=== PATIENT | male | born 1955 | race Caucasian/White ===

== ENCOUNTER 2018-01-09 22:16 | Inpatient (IN) | END 2018-01-15 10:30 | disposition home or self-care (01) | DRG 919 ==

== ENCOUNTER 2018-05-08 09:01 | Inpatient (IN) | payer OTHER ==
[~2018-05-08] VITALS: Ht 167.6 cm; Wt 92.0 kg
[2018-05-08] VITALS (12 sets, daily range): BP systolic 101–141; BP diastolic 67–84; PULSE 53–60; RESP 16–18; Ht 167.6 cm; Wt 92.0 kg
[~2018-05-08 09:01] MED LIST: ALLO100T PO; ASPI-817 PO; ATOR-2 PO; CALC667C PO; CLOP75TA19 PO; FURO40TA4 PO; Insulin Glargine SC; LOSA100T15 PO; METO200T49 PO; NOVO3I SC
[2018-05-08] MEDS ORDERED: ALBUTEROL 0.083% (NEB) 2.5 MG/3 ML AMP HHN STA (09:14)
[2018-05-08] MEDS ORDERED: IPRATROPIUM (NEB) 0.5 MG/2.5 ML AMP HHN ONE (09:30)
[2018-05-08] MEDS ORDERED: ATOR-2 PO (10:05)
[2018-05-08] MEDS ORDERED: AMIO200T4 PO (10:05)
[2018-05-08] MEDS ORDERED: CLOP75TA27 PO (10:06)
[2018-05-08] MEDS ORDERED: NPH,100V SQ (10:12)
[2018-05-08] MEDS ORDERED: INSU100V3 IJ (10:12)
[2018-05-08] MEDS ORDERED: METO200T49 PO (10:13)
[2018-05-08] MEDS ORDERED: MAGN400T28 PO (10:13)
[2018-05-08] MEDS ORDERED: ACETAMINOPHEN 325 MG TAB PO PRN ×2 (11:30→13:30)
[2018-05-08] MEDS ORDERED: ONDANSETRON 4 MG INJ IV PRN ×2 (11:30→13:30)
[2018-05-08] MEDS ORDERED: SODIUM CHLORIDE 0.9% 1L BAG IV PRN (11:30)
[2018-05-08] MEDS ORDERED: ALBUMIN HUMAN 25% 100 ML IV PRN (11:30)
--- NOTE | 2018-05-08 11:35 | CONS ---
Date/Time of Note Date/Time of Note DATE: 05/08/18 TIME: 11:34 Assessment/Plan Assessment/Plan Additional Assessment/Plan 1. Acute fluid overload with significant LE edema despite being on 4 times a week HD regimen 2. Concerned about PD catheter infection due to constant pain and cough 3. ESRD on HD , and Tuesday Schedule at [facility] HD center 4. H/o HTN 5. H/o DM II 6. H/o HL Plan: seen in ED, pt will be getting admitted to Tele floor Plan for HD urgently due to fluid overload, will plan for another HD tomorrow ,IV ceftriaxone for PD catheter infection , will change to PO keflex upon discharge Due to concern about PD catheter pain and infection, will plan to remove his PD catheter pt is currently on HD regimen through his R chest permacath Thanks for consultation I will continue to follow up Consultation Date/Type/Reason Admit Date/Time 05/08/2018 Date of Consultation: May 08, 2018 Type of Consultation: NEPHROLOGY Reason for Consultation ESRD on HD with acute fluid overlaod, abdominal pain concerned about infected PD catheter Requesting Provider: DULCE MARIA TRUONG MD Hx of Present Illness 63 M with PMHx of HTN, DM II, ESRD on HD Tuesday, and Tuesday, pt was previosly on PD but continues ot have fluid overlod and SOB- he was switched to Hemodialysis for better Fluid removal and BP control. Currenlty he gets HD through Right chest Permacath at [facility] HD center pt previosly has high fluid from PD infected with GBS- he has been constantly c/o Abdominal pain with distended abdomen in HD unit also has been having constant cough he has been on 4 times a week HD regiment still he has significant LE Edema 3+, and Dyspnea on exertion he is getting admitted for fluid overload and Possible need removal of his PD catheter Constitutional: no complaints Eyes: no complaints ENT: no complaints Respiratory: pain, cough, pleuritic pain, shortness of breath Cardiovascular: no complaints Gastrointestinal: pain (abdominal pain at PD catheter site ) Genitourinary: flank pain Musculoskeletal: neck pain Skin: no complaints Neurologic: no complaints Endocrine: no complaints Lymphatic: no complaints Psychological: no complaints Immunologic: no complaints Past Surgical History Past Surgical Hx: other Social History Smoking Status: Former smoker Exam/Review of Systems Vital Signs Vitals Vital Signs Date Temp Pulse Resp B/P (MAP) Pulse Ox O2 O2 Flow FiO2 Time Delivery Rate 05/08/18 59 21 118/74 99 Room Air 11:31 (89) 05/08/18 98.0 11:00 05/08/18 21 09:24 Exam Constitutional: alert Psych: no complaints Head: normocephalic Eyes: nl conjunctiva ENMT: nl external ears & nose Neck: supple, non-tender Respiratory: congested cough, crackles/rales, diminished breath sounds Cardiovascular: regular rate and rhythm, nl pulses Gastrointestinal: soft, distended, tender (at PD catheter site on deep pal pation ) Musculoskeletal: muscle weakness, swelling (2-3+ pitting edema ) Extremities: normal pulses 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, nl mental status, nl speech, nl strength Skin: nl turgor Lymph: nl lymph nodes Medications Medications Current Medications Ondansetron HCl (Zofran Inj) 4 mg BRIDGE ORDER PRN IV NAUSEA AND/OR VOMITING; Start 05/08/18 at 11:30; Stop 05/09/18 at 11:29 Acetaminophen (Tylenol Tab) 650 mg ER BRIDGE PRN PO MILD PAIN(1-3)OR ELEVATED TEMP; Start 05/08/18 at 11:30; Stop 05/09/18 at 11:29 Heparin Sodium (Porcine) (Heparin (1000 Units/ml)) 4,000 unit AFTER DIALYSIS CATHETER ; Start 05/08/18 at 11:30; Status UNV Albumin Human 100 ml @ 100 mls/hr WITH DIALYSIS PRN IV SBP less than 90 mm Hg ; Start 05/08/18 at 11:30; Status UNV Sodium Chloride (NS) -To prime the dialy... DIRECTED FOR HD PRN IV SBP less than 90 mm hg ; Start 05/08/18 at 11:30; Status UNV Results Result Diagram: 05/08/1894805/08/18 0949 Results 24 hrs Laboratory Tests Test 05/08/18 09:49 White Blood Count 8.3 Red Blood Count 3.57 #L Hemoglobin 10.2 L Hematocrit 34.4 #L Mean Corpuscular Volume 96.4 Mean Corpuscular Hemoglobin 28.6 L Mean Corpuscular Hemoglobin Concent 29.7 L Red Cell Distribution Width 16.2 #H Platelet Count 195 Mean Platelet Volume 9.4 Immature Granulocytes % 0.200 Neutrophils % 58.0 Lymphocytes % 15.8 Monocytes % 10.4 Eosinophils % 14.5 H Basophils % 1.1 Nucleated Red Blood Cells % 0.0 Immature Granulocytes # 0.020 Neutrophils # 4.8 Lymphocytes # 1.3 Monocytes # 0.9 Eosinophils # 1.2 H Basophils # 0.1 Nucleated Red Blood Cells # 0.0 Sodium Level 140 Potassium Level 5.1 Chloride Level 102 Carbon Dioxide Level 24 Anion Gap 14 H Blood Urea Nitrogen 67 H Creatinine 9.23 H Est Glomerular Filtrat Rate mL/min 6 L Glucose Level 165 Calcium Level 8.3 L Troponin I < 0.012 FADI IRWIN MD May 08, 2018 11:35
--- NOTE | 2018-05-08 12:18 | ERD ---
ER Documentation Chief Complaint Chief Complaint SOB TODAY DUE FOR F DIALISYS TOMORROW HPI Patient is a 63-year-old male with coronary disease, hypertension, and diabetes who presents with shortness of breath. The patient had a hard time breathing and was "panting this morning". He had cough but no fever. He did have his dialysis on Tuesday and usually gets Tuesday, , and Tuesday dialysis. Upon review of old medical records the patient one previous visit with admission on December 2017. The patient's director environmental is Dr. Mark Crystal. ROS All systems reviewed and are negative except as per history of present illness. Medications Home Meds Active Scripts Losartan Potassium* (Losartan Potassium*) 100 Mg Tablet, 100 MG PO DAILY, #30 TAB Prov:BRADLEY OVALLE 01/14/18 Reported Medications Metoprolol Succinate* (Toprol XL*) 200 Mg Tab.sr.24h, 200 MG PO DAILY, #30 TAB 05/08/18 Magnesium Oxide* (Magnesium Oxide*) 400 Mg Tablet, 400 MG PO BID, TAB 05/08/18 Insulin Regular, Human (Humulin R) 100 Unit/1 Ml Vial, 15 UNIT IJ QPM, VIAL 05/08/18 Insulin NPH Human Isophane (Humulin N) 100 Unit/1 Ml Vial, 20 UNIT SQ QAM, VIAL 05/08/18 Clopidogrel Bisulfate (Clopidogrel) 75 Mg Tablet, 75 MG PO DAILY, #30 TAB 05/08/18 Atorvastatin* (Atorvastatin*) 80 Mg Tablet, 80 MG PO QHS, #30 TAB 05/08/18 Amiodarone Hcl* (Amiodarone Hcl*) 200 Mg Tablet, 200 MG PO DAILY, #30 TAB 05/08/18 Allopurinol* (Allopurinol*) 100 Mg Tablet, 100 MG PO BID, TAB 01/09/18 Calcium Acetate* (Calcium Acetate*) 667 Mg Capsule, 667 MG PO WITH MEALS, #90 CAP 01/09/18 Discontinued Scripts Insulin Aspart* (Novolog Insulin Pen*) 100 Unit/Ml Soln, 8 UNIT SC WITH MEALS for 30 Days Prov:BRADLEY OVALLE 01/14/18 [Insulin Glargine] 100 UNITS/ML SOLN No Conflict Check, 35 UNITS SC QHS for 30 Days Prov:BRADLEY OVALLE 01/14/18 Clopidogrel Bisulfate* (Clopidogrel Bisulfate*) 75 Mg Tablet, 75 MG PO DAILY, #30 TAB Prov:REGIDORBRADLEY 01/14/18 Aspirin* (Aspirin* EC) 81 Mg Tablet.dr, 81 MG PO DAILY, #30 TAB Prov:REGIDORBRADLEY 01/14/18 Atorvastatin* (Atorvastatin*) 80 Mg Tablet, 80 MG PO QHS, #30 TAB Prov:REGIDORJUDAHBRADLEY 01/14/18 Metoprolol Succinate* (Toprol XL*) 200 Mg Tab.sr.24h, 200 MG PO DAILY, #30 TAB Prov:REGIDOR,BRADLEY 01/14/18 Furosemide* (Furosemide*) 40 Mg Tablet, 40 MG PO BID, #60 TAB Prov:[facility] 01/14/18 Allergies Allergies: Coded Allergies: No Known Allergy (Unverified , 05/08/18) PMhx/Soc History of Surgery: Yes (cardiac stents x 6 ) Hx Neurological Disorder: No Hx Respiratory Disorders: No Hx Cardiac Disorders: Yes (HTN) Hx Psychiatric Problems: No Hx Miscellaneous Medical Probl: No Hx Alcohol Use: No Hx Substance Use: No Hx Tobacco Use: No Smoking Status: Former smoker FmHx Family History: diabetes Physical Exam Vitals Vital Signs Date Temp Pulse Resp B/P (MAP) Pulse Ox O2 O2 Flow FiO2 Time Delivery Rate 05/08/18 98.0 59 18 120/70 97 Room Air 11:00 (87) 05/08/18 59 21 115/70 100 Room Air 10:30 (85) 05/08/18 62 18 141/112 100 Room Air 10:05 (122) 05/08/18 88 24 100 21 09:24 05/08/18 97.2 61 18 122/63 99 09:04 (82) Physical Exam Const: Moderate distress secondary to shortness of breath Head: Atraumatic Eyes: Normal Conjunctiva ENT: Normal External Ears, Nose and Mouth. Neck: Full range of motion. No meningismus. Resp: Tachypnea with diffuse expiratory wheezing Cardio: Regular rate and rhythm, no murmurs Abd: Soft, non tender, non distended. Normal bowel sounds Skin: No petechiae or rashes Back: No midline or flank tenderness Ext: No cyanosis, or edema Neur: Awake and alert Psych: Normal Mood and Affect Result Diagram: 05/08/18 0949 05/08/18 0949 Results 24 hrs Laboratory Tests Test 05/08/18 09:49 White Blood Count 8.3 10^3/ul Red Blood Count 3.57 10^6/ul Hemoglobin 10.2 g/dl Hematocrit 34.4 % Mean Corpuscular Volume 96.4 fl Mean Corpuscular Hemoglobin 28.6 pg Mean Corpuscular Hemoglobin Concent 29.7 g/dl Red Cell Distribution Width 16.2 % Platelet Count 195 10^3/UL Mean Platelet Volume 9.4 fl Immature Granulocytes % 0.200 % Neutrophils % 58.0 % Lymphocytes % 15.8 % Monocytes % 10.4 % Eosinophils % 14.5 % Basophils % 1.1 % Nucleated Red Blood Cells % 0.0 /100WBC Immature Granulocytes # 0.020 10^3/ul Neutrophils # 4.8 10^3/ul Lymphocytes # 1.3 10^3/ul Monocytes # 0.9 10^3/ul Eosinophils # 1.2 10^3/ul Basophils # 0.1 10^3/ul Nucleated Red Blood Cells # 0.0 10^3/ul Sodium Level 140 mmol/L Potassium Level 5.1 mmol/L Chloride Level 102 mmol/L Carbon Dioxide Level 24 mmol/L Anion Gap 14 Blood Urea Nitrogen 67 mg/dl Creatinine 9.23 mg/dl Est Glomerular Filtrat Rate mL/min 6 mL/min Glucose Level 165 mg/dl Calcium Level 8.3 mg/dl Troponin I < 0.012 ng/ml Current Medications Medications Dose Sig/Kailee Start Time Status Last (Trade) Ordered Route PRN Stop Time Admin Dose Reason Admin Albuterol 5 mg ONCE STAT 05/08/18 DC 05/08/18 (Proventil HHN 09:14 09:20 0.083% (Neb)) 05/08/18 09:15 Ipratropium 0.5 mg ONCE ONCE 05/08/18 DC 05/08/18 [place] HHN 09:30 09:21 (Atrovent 05/08/18 0.02% 09:31 (Neb)) Procedures/MDM Chest x-ray shows pulmonary vascular congestion per radiology. EKG read by me: Rate/Rhythm: Regular rate and rhythm at a normal rate Intervals: Normal Impression: No evidence of ischemia or arrhythmia Patient is a 63-year-old male with multiple comorbidities who presents with shortness of breath. I believe he likely has fluid overload. The patient will need admission as I spoke to his director environmental Dr. Mark Crystal who wants him admitted for extra dialysis. His initial potassium is normal. The patient will be admitted to the panel team to a medical surgical bed. Patient can return for any worsening symptoms. Departure Diagnosis: Primary Impression: Shortness of breath Condition: DULCE MARIA Lo MD May 08, 2018 12:18
--- NOTE | 2018-05-08 13:29 | HP ---
Date/Time of Note Date/Time of Note DATE: 05/08/18 TIME: 13:08 Assessment/Plan VTE Prophylaxis SCD applied (from Nsg): Yes Pharmacological prophylaxis: NA/contraindicated Pharm contraindication: low risk/ambulating Lines/Catheters IV Catheter Type (from Nrsg): Saline Lock Assessment/Plan Assessment/Plan 63 yo man with history of ESRD on HD who presents with shortness of breath. #Dyspnea - CXR with pulmonary vascular congestion - Patient is anuric - Plan for HD #Bacterial peritonitis - According to Dr Crystal, peritoneal fluid recently growing group B strep sensitive to ceftriaxone and cephalexin. - Currently patient with no abdominal pain, no leukocytosis or fever or other signs of sepsis. - Will plan for IR removal of catheter as it is no longer needed - Will treat with ceftriaxone inpatient and discharge on cephalexin. #IDDM - Continue home regimen of NPH and regular - also RISS #A fib, paroxysmal - WIll get EKG to confirm rhythm - Rhythm controlled on amiodarone - Restart eliquis after peritoneal catheter removal and any other procedures. #HTN - Resume home antihypertensives. HPI/ROS Admit Date/Time Admit Date/Time 05/08/2018 Hx of Present Illness Mr Mercer is a 63 yo man with ESRD on HD and IDDM who presents with shortness of breath. He has ESRD and previously was on peritoneal dialysis until January; when he was admitted here for fluid overload and switched to hemodialysis via R chest permacath. Since then he's been getting T-Th-Sa dialysis; but last week he required an extra session of dialysis on . Last dialysis was Sat. This morning he reports having significant dyspnea at rest, wheezing, and dry cough. Feels that he cannot catch his breath. He was hospitalized 1 month ago with new A fib with RVR and was started on amiodarone and Eliquis at that time. His peritoneal catheter has been clamped since January. He has had mild abdominal distension but denies pain. According to Dr Crystal, his peritoneal fluid was abnormal in the HD unit. In the ED he was afebrile, P 60s, BP 141/122, satting 100% on room air. CXR with some pulmonary vascular congestion. ROS Denies fever, chills, night sweats, weight loss; headache, vision changes, sore throat, productive cough, chest pain/pressure/palpitations, nausea, vomiting, diarrhea, constipation. Patient is anuric. No lower extremity edema. PMH/Family/Social Past Medical History 1. CAD status post 2 stents in 2009 and 2 more stents in 2018 2. Hypertension 3. CKD previously on peritoneal dialysis. 4. High cholesterol 5. Diabetes, insulin-dependent 6. Hepatitis B exposure 7. Diabetic ulcers Coded Allergies: No Known Allergy (Unverified , 05/08/18) Past Surgical History Peritoneal dialysis catheter placement. Cataract surgery Hernia repair Past Surgical Hx: other Social History Alcohol Use: none Smoking Status: Former smoker Drug Use: none Exam/Review of Systems Vital Signs Vitals Vital Signs Date Temp Pulse Resp B/P (MAP) Pulse Ox O2 O2 Flow FiO2 Time Delivery Rate 05/08/18 59 21 118/74 99 Room Air 11:31 (89) 05/08/18 98.0 11:00 05/08/18 21 09:24 Exam Exam Gen: Well appearing overweight man in no distress Eyes: Miotic unreactive pupils bilaterally, no icterus. HEENT: Moist mucous membranes clear oropharynx Neck: JVD. Chest: R chest permacath. Pulm: Wheezing throughout. Breathing comfortably on room air. Card: Regular rate and rhythm, no murmurs Abd: Distended, soft, catheter in place clean appearing Ext: Venous stasis changes with skin darkening and thickening. Medications Medications Current Medications Ondansetron HCl (Zofran Inj) 4 mg BRIDGE ORDER PRN IV NAUSEA AND/OR VOMITING; Start 05/08/18 at 11:30; Stop 05/09/18 at 11:29 Acetaminophen (Tylenol Tab) 650 mg ER BRIDGE PRN PO MILD PAIN(1-3)OR ELEVATED TEMP; Start 05/08/18 at 11:30; Stop 05/09/18 at 11:29 Heparin Sodium (Porcine) (Heparin (1000 Units/ml)) 4,000 unit AFTER DIALYSIS CATHETER ; Start 05/08/18 at 11:30 Albumin Human 100 ml @ 100 mls/hr WITH DIALYSIS PRN IV SBP less than 90 mm Hg ; Start 05/08/18 at 11:30 Sodium Chloride (NS) -To prime the dialy... DIRECTED FOR HD PRN IV SBP less than 90 mm hg ; Start 05/08/18 at 11:30 Results Result Diagram: 05/08/1849 05/08/1849 MIMI SANDOVAL MD May 08, 2018 13:19
[2018-05-08] MEDS ORDERED: NACL 0.9% 3 ML SYG IV SCH (13:30)
[2018-05-08] MEDS ORDERED: GLUCAGON 1 MG INJ IM PRN (14:00)
[2018-05-08] MEDS ORDERED: GLUCOSE GEL 15 GRAM TUBE BUCCAL PRN (14:00)
[2018-05-08] MEDS ORDERED: GLUCOSE GEL 15 GRAM TUBE PO PRN ×2 (14:00)
[2018-05-08] MEDS ORDERED: DEXTROSE 50% 50 ML SYRINGE IV PRN ×2 (14:00)
[2018-05-08] MEDS: INSULIN ASPART [NOVOLOG] 3 ML PEN SC SCH ×3 (18:00→21:56)
[2018-05-08] MEDS: CALCIUM ACETATE 667 MG CAP PO SCH (18:17)
[2018-05-08] MEDS: MAGNESIUM OXIDE 400 MG TAB PO SCH (20:50)
[2018-05-08] MEDS: ATORVASTATIN 80 MG TAB PO SCH (20:50)
[2018-05-08] MEDS: ALLOPURINOL 100 MG TAB PO SCH (20:50)
[2018-05-08] MEDS: HEPARIN 1000 UNITS/ML 10 ML INJ CATHETER SCH (21:08)
[2018-05-09] VITALS (18 sets, daily range): BP systolic 110–143; BP diastolic 68–86; PULSE 61–71; RESP 16–20
[2018-05-09] MEDS ORDERED: morphine 2 MG INJ IV STA (01:54)
[2018-05-09] MEDS: ACCU-CHEK XX SCH (02:00)
[2018-05-09] MEDS: AMIODARONE 200 MG TAB PO SCH (08:22)
[2018-05-09] MEDS: ALLOPURINOL 100 MG TAB PO SCH ×2 (08:22→20:58)
[2018-05-09] MEDS: CLOPIDOGREL 75 MG TAB PO SCH (08:22)
[2018-05-09] MEDS: MAGNESIUM OXIDE 400 MG TAB PO SCH ×2 (08:23→20:58)
[2018-05-09] MEDS: CALCIUM ACETATE 667 MG CAP PO SCH ×3 (08:23→17:40)
[2018-05-09] MEDS: NPH, HUMAN INSULIN ISOPHANE 3ML VIAL SC SCH (08:27)
[2018-05-09] MEDS: INSULIN ASPART [NOVOLOG] 3 ML PEN SC SCH ×5 (08:28→21:00)
[2018-05-09] MEDS: METOPROLOL (XL) 100 MG TAB PO SCH (09:00)
[2018-05-09] MEDS: LOSARTAN 50 MG TAB PO SCH (09:00)
--- NOTE | 2018-05-09 09:16 | CONS ---
Date/Time of Note Date/Time of Note DATE: 05/09/18 TIME: 09:16 Assessment/Plan Assessment/Plan Additional Assessment/Plan 1. Acute fluid overload with significant LE edema despite being on 4 times a week HD regimen 2. Concerned about PD catheter infection due to constant pain and cough 3. ESRD on HD , and Tuesday Schedule at [facility] 4. H/o HTN 5. H/o DM II 6. H/o HL Plan: s/p HD x 2 days in a row, IR attempted removal of PD catehter but it was uns uccessful, Surgical consultation is recommended- Will request surgeon Dr.Sammy Armstrong to see pt Due to his cardiac history , Cardiology consultation will be obtained pt is currently on HD regimen through his R chest permacath plan is to remove PD catheter and need permanent AVF access also. will follow up Consultation Date/Type/Reason Admit Date/Time May 08, 2018 at 11:10 Initial Consult Date 05/08/18 Type of Consultation: NEPHROLOGY Requesting Provider: DULCE MARIA TRUONG MD 24 HR Interval Summary Free Text/Dictation IR was not able to remove PD catheter, unsuccessful, pt had his HD today Exam/Review of Systems Vital Signs Vitals Vital Signs Date Temp Pulse Resp B/P (MAP) Pulse Ox O2 O2 Flow FiO2 Time Delivery Rate 05/09/18 98.4 64 16 128/73 97 07:29 (91) 05/08/18 Room Air 20:10 05/08/18 21 09:24 Intake and Output 05/08/18 05/08/18 05/09/18 1515:00 23:00 07:00 IntakeIntake Total 240 ml 240 ml 650 ml OutputOutput Total 2300 ml BalanceBalance 240 ml -2060 ml 650 ml Exam Constitutional: alert, awake Respiratory: congested cough, crackles/rales, diminished breath sounds Cardiovascular: regular rate and rhythm, nl pulses Gastrointestinal: soft, distended, tender (at PD catheter site on deep palpation ) Musculoskeletal: muscle weakness, swelling (2-3+ pitting edema ) Extremities: normal pulses 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 DIRECTED FOR HD PRN IV SBP less than 90 mm hg ; Start 05/08/18 at 11:30 IV Flush (NS 3 ml) 3 ml PER PROTOCOL IV ; Start 05/08/18 at 13:30 Ondansetron HCl (Zofran Inj) 4 mg Q6H PRN IV NAUSEA AND/OR VOMITING; Start 05/08/18 at 13:30 Acetaminophen (Tylenol Tab) 650 mg Q6H PRN PO PAIN LEVEL 1-3 OR FEVER; Start 05/08/18 at 13:30 Allopurinol (Zyloprim) 100 mg BID PO Last administered on 05/09/18at 08:22; Admin Dose 100 MG; Start 05/08/18 at 21:00 Amiodarone HCl (Cordarone) 200 mg DAILY PO Last administered on 05/09/18 08:22; Admin Dose 200 MG; Start 05/09/18 at 09:00 Atorvastatin Calcium (Lipitor) 80 mg QHS PO Last administered on 05/08/18at 20:50; Admin Dose 80 MG; Start 05/08/18 at 21:00 Calcium Acetate (Phoslo) 667 mg WITH MEALS PO Last administered on 05/09/18at 08:23; Admin Dose 667 MG; Start 05/08/18 at 18:00 Clopidogrel Bisulfate (plaVIX) 75 mg DAILY PO Last administered on 05/09/18at 08:22; Admin Dose 75 MG; Start 05/09/18 at 09:00 Insulin Human NPH (Humulin N) 20 unit QAM SC Last administered on 05/09/18 08:27; Admin Dose 20 UNIT; Start 05/09/18 at 09:00 Insulin Aspart (Novolog Insulin Pen) 15 unit QPM SC Last administered on 05/08/18at 21:56; Admin Dose 15 UNIT; Start 05/08/18 at 21:00 Losartan Potassium (Cozaar) 100 mg DAILY PO ; Start 05/09/18 at 09:00 Magnesium Oxide (Mag-Ox 400) 400 mg BID PO Last administered on 05/09/18at 08:23; Admin Dose 400 MG; Start 05/08/18 at 21:00 Metoprolol Succinate (Toprol Xl) 200 mg DAILY PO ; Start 05/09/18 at 09:00 Diagnostic Test (Pha) (Accu-Chek) 1 ea 02 XX ; Start 05/09/18 at 02:00 Insulin Aspart (Novolog Insulin Pen) NOVOLOG *MILD* ALGORITHM WITH MEALS BEDTIME SC Last administered on 05/09/18at 08:28; Admin Dose 1 UNIT; Start 05/08/18 at 18:00 Miscellaneous Information 1 ea NOTE XX ; Start 05/08/18 at 14:00 Glucose (Glutose) 15 gm Q15M PRN PO DECREASED GLUCOSE; Start 05/08/18 at 14:00 Glucose (Glutose) 22.5 gm Q15M PRN PO DECREASED GLUCOSE; Start 05/08/18 at 14:00 Dextrose (D50w Syringe) 25 ml Q15M PRN IV DECREASED GLUCOSE; Start 05/08/18 at 14:00 Dextrose (D50w Syringe) 50 ml Q15M PRN IV DECREASED GLUCOSE; Start 05/08/18 at 14:00 Glucagon (Glucagen) 1 mg Q15M PRN IM DECREASED GLUCOSE; Start 05/08/18 at 14:00 Glucose (Glutose) 15 gm Q15M PRN BUCCAL DECREASED GLUCOSE; Start 05/08/18 at 14:00 Results Result Diagram: 05/09/18 0635 05/09/18 0635 Results 24 hrs Laboratory Tests Test 05/08/18 09:49 05/08/18 18:15 05/08/18 20:14 05/09/18 06:35 White Blood 8.3 6.9 Count Red Blood Count 3.57 #L 3.52 L Hemoglobin 10.2 L 10.0 L Hematocrit 34.4 #L 33.6 L Mean Corpuscular 96.4 95.5 Volume Mean Corpuscular 28.6 L 28.4 L Hemoglobin Mean Corpuscular 29.7 L 29.8 L Hemoglobin Vivian nt Red Cell 16.2 #H 16.4 H Distribution Width Platelet Count 195 211 Mean Platelet 9.4 9.2 Volume Immature 0.200 0.300 Granulocytes % Neutrophils % 58.0 56.4 Lymphocytes % 15.8 14.5 L Monocytes % 10.4 10.4 Eosinophils % 14.5 H 17.1 H Basophils % 1.1 1.3 Nucleated Red 0.0 0.0 Blood Cells % Immature 0.020 0.020 Granulocytes # Neutrophils # 4.8 3.9 Lymphocytes # 1.3 1.0 Monocytes # 0.9 0.7 Eosinophils # 1.2 H 1.2 H Basophils # 0.1 0.1 Nucleated Red 0.0 0.0 Blood Cells # Sodium Level 140 141 Potassium Level 5.1 4.4 Chloride Level 102 99 Carbon Dioxide 24 30 Level Anion Gap 14 H 12 Blood Urea 67 H 45 #H Nitrogen Creatinine 9.23 H 7.25 H Est Glomerular 6 L 8 L Filtrat Rate mL/min Glucose Level 165 150 Calcium Level 8.3 L 8.4 Troponin I < 0.012 Hepatitis B NEGATIVE Surface Antigen Bedside Glucose 104 93 Hemoglobin A1c 5.9 Uric Acid 5.0 Phosphorus Level 4.8 Magnesium Level 2.1 Total Bilirubin 0.0 L Direct Bilirubin 0.00 Indirect 0.0 Bilirubin Aspartate Amino 25 Transf (AST/SGOT ) Alanine 12 L Aminotransferase (ALT/SGPT) Alkaline 87 Phosphatase Total Protein 7.6 Albumin 3.8 Globulin 3.80 H Albumin/Globulin 1.00 Ratio Test 05/09/18 08:23 Bedside Glucose 141 FADI IRWIN MD May 09, 2018 09:16
[2018-05-09] MEDS: HEPARIN 1000 UNITS/ML 10 ML INJ CATHETER SCH (13:33)
[2018-05-09] MEDS ORDERED: LIDOCAINE 1%/EPI 30 ML INJ ONE (14:31)
--- NOTE | 2018-05-09 16:31 | RADRPT ---
Vent Rate: 65 bpm RR Interval: 0 msec MD Interval: 262 msec QRS Duration: 96 msec QT Interval: 498 msec QTC Interval: 517 msec P-R-T Truman: 74 - 0 - 80 degrees Sinus rhythm with 1st degree AV block with premature atrial complexes Inferior infarct , age undetermined Anterolateral infarct , age undetermined Prolonged QT Abnormal ECG Electronically Signed By: Trent Astorga [id number]
--- NOTE | 2018-05-09 17:58 | PN ---
Date/Time of Note Date/Time of Note DATE: 05/09/18 TIME: 17:56 Assessment/Plan VTE Prophylaxis Risk score (from Nsg)>0 risk: 3 SCD applied (from Ns): No SCD contraindicated: low risk/ambulating Pharmacological prophylaxis: NA/contraindicated Pharm contraindication: surgical contra Lines/Catheters IV Catheter Type (from [facility]): Saline Lock Assessment/Plan Assessment/Plan 63 yo man with history of ESRD on HD who presents with shortness of breath. #Dyspnea - CXR with pulmonary vascular congestion - Patient is anuric - Now significant improved after dialysis. #History of bacterial peritonitis - According to Dr Crystal, peritoneal fluid in march grew group B strep - Currently patient with no abdominal pain, no leukocytosis or fever or other signs of sepsis. - Will plan for IR removal of catheter as it is no longer needed - Will hold off on antibiotics #IDDM - Continue home regimen of NPH and regular - also RISS #A fib, paroxysmal - Currently in sinus. - Rhythm controlled on amiodarone - Restart eliquis after peritoneal catheter removal and any other procedures. #HTN - Resume home antihypertensives. Subjective 24 Hr Interval Summary Free Text/Dictation Patient got dialysis yesterday and today with significant improvement in dyspnea. Exam/Review of Systems Vital Signs Vitals Vital Signs Date Temp Pulse Resp B/P (MAP) Pulse Ox O2 O2 Flow FiO2 Time Delivery Rate 05/09/18 70 13:20 05/09/18 20 123/86 92 Room Air 13:10 (98) 05/09/18 98.4 07:29 05/08/18 21 09:24 Intake and Output 05/08/18 05/08/18 05/09/18 1515:00 23:00 07:00 IntakeIntake Total 240 ml 240 ml 650 ml OutputOutput Total 2300 ml BalanceBalance 240 ml -2060 ml 650 ml Exam Gen: Well appearing overweight man in no distress Eyes: Miotic unreactive pupils bilaterally, no icterus. HEENT: Moist mucous membranes clear oropharynx Chest: R chest permacath. Pulm: Wheezing throughout. Breathing comfortably on room air. Card: Regular rate and rhythm, no murmurs Abd: Distended, soft, catheter in place clean appearing Ext: Venous stasis changes with skin darkening and thickening. Medications Medications Current Medications Heparin Sodium (Porcine) (Heparin (1000 Units/ml)) 4,000 unit AFTER DIALYSIS CATHETER Last administered on 05/09/18at 13:33; Admin Dose 4,000 UNIT; Start 05/08/18 at 11:30 Albumin Human 100 ml @ 100 mls/hr WITH DIALYSIS PRN IV SBP less than 90 mm Hg ; Start 05/08/18 at 11:30 Sodium Chloride (NS) -To prime the dialy... DIRECTED FOR HD PRN IV SBP less than 90 mm hg ; Start 05/08/18 at 11:30 IV Flush (NS 3 ml) 3 ml PER PROTOCOL IV ; Start 05/08/18 at 13:30 Ondansetron HCl (Zofran Inj) 4 mg Q6H PRN IV NAUSEA AND/OR VOMITING; Start 05/08/18 at 13:30 Acetaminophen (Tylenol Tab) 650 mg Q6H PRN PO PAIN LEVEL 1-3 OR FEVER; Start 05/08/18 at 13:30 Allopurinol (Zyloprim) 100 mg BID PO Last administered on 05/09/18at 08:22; Admin Dose 100 MG; Start 05/08/18 at 21:00 Amiodarone HCl (Cordarone) 200 mg DAILY PO Last administered on 05/09/18 08:22; Admin Dose 200 MG; Start 05/09/18 at 09:00 Atorvastatin Calcium (Lipitor) 80 mg QHS PO Last administered on 05/08/18at 20:50; Admin Dose 80 MG; Start 05/08/18 at 21:00 Calcium Acetate (Phoslo) 667 mg WITH MEALS PO Last administered on 05/09/18 08:23; Admin Dose 667 MG; Start 05/08/18 at 18:00 Clopidogrel Bisulfate (plaVIX) 75 mg DAILY PO Last administered on 05/09/18 08:22; Admin Dose 75 MG; Start 05/09/18 at 09:00 Insulin Human NPH (Humulin N) 20 unit QAM SC Last administered on 05/09/18 08:27; Admin Dose 20 UNIT; Start 05/09/18 at 09:00 Insulin Aspart (Novolog Insulin Pen) 15 unit QPM SC Last administered on at 21:56; Admin Dose 15 UNIT; Start 05/08/18 at 21:00 Losartan Potassium (Cozaar) 100 mg DAILY PO ; Start 05/09/18 at 09:00 Magnesium Oxide (Mag-Ox 400) 400 mg BID PO Last administered on 05/09/18at 08:23; Admin Dose 400 MG; Start 05/08/18 at 21:00 Metoprolol Succinate (Toprol Xl) 200 mg DAILY PO ; Start 05/09/18 at 09:00 Diagnostic Test (Pha) (Accu-Chek) 1 ea 02 XX ; Start 05/09/18 at 02:00 Insulin Aspart (Novolog Insulin Pen) NOVOLOG *MILD* ALGORITHM WITH MEALS BEDTIME SC Last administered on 05/09/18at 08:28; Admin Dose 1 UNIT; Start 05/08/18 at 18:00 Miscellaneous Information 1 ea NOTE XX ; Start 05/08/18 at 14:00 Glucose (Glutose) 15 gm Q15M PRN PO DECREASED GLUCOSE; Start 05/08/18 at 14:00 Glucose (Glutose) 22.5 gm Q15M PRN PO DECREASED GLUCOSE; Start 05/08/18 at 1 4:00 Dextrose (D50w Syringe) 25 ml Q15M PRN IV DECREASED GLUCOSE; Start 05/08/18 at 14:00 Dextrose (D50w Syringe) 50 ml Q15M PRN IV DECREASED GLUCOSE; Start 05/08/18 at 14:00 Glucagon (Glucagen) 1 mg Q15M PRN IM DECREASED GLUCOSE; Start 05/08/18 at 14:00 Glucose (Glutose) 15 gm Q15M PRN BUCCAL DECREASED GLUCOSE; Start 05/08/18 at 14:00 Results Result Diagram: 05/09/18 0635 05/09/18 0635 Results 24 hrs Laboratory Tests Test 05/08/18 18:15 05/08/18 20:14 05/09/18 06:35 05/09/18 08:23 Bedside Glucose 104 93 141 White Blood 6.9 Count Red Blood Count 3.52 L Hemoglobin 10.0 L Hematocrit 33.6 L Mean Corpuscular 95.5 Volume Mean Corpuscular 28.4 L Hemoglobin Mean Corpuscular 29.8 L Hemoglobin Vivian nt Red Cell 16.4 H Distribution Width Platelet Count 211 Mean Platelet 9.2 Volume Immature 0.300 Granulocytes % Neutrophils % 56.4 Lymphocytes % 14.5 L Monocytes % 10.4 Eosinophils % 17.1 H Basophils % 1.3 Nucleated Red 0.0 Blood Cells % Immature 0.020 Granulocytes # Neutrophils # 3.9 Lymphocytes # 1.0 Monocytes # 0.7 Eosinophils # 1.2 H Basophils # 0.1 Nucleated Red 0.0 Blood Cells # Sodium Level 141 Potassium Level 4.4 Chloride Level 99 Carbon Dioxide 30 Level Anion Gap 12 Blood Urea 45 #H Nitrogen Creatinine 7.25 H Est Glomerular 8 L Filtrat Rate mL/min Glucose Level 150 Hemoglobin A1c 5.9 Uric Acid 5.0 Calcium Level 8.4 Phosphorus Level 4.8 Magnesium Level 2.1 Total Bilirubin 0.0 L Direct Bilirubin 0.00 Indirect 0.0 Bilirubin Aspartate Amino 25 Transf (AST/SGOT ) Alanine 12 L Aminotransferase (ALT/SGPT) Alkaline 87 Phosphatase Total Protein 7.6 Albumin 3.8 Globulin 3.80 H Albumin/Globulin 1.00 Ratio Test 05/09/18 13:10 05/09/18 17:39 Bedside Glucose 95 167 MIMI SANDOVAL MD May 09, 2018 17:58
--- NOTE | 2018-05-09 18:52 | CONS ---
DATE OF ADMISSION: 05/08/2018 DATE OF CONSULTATION: 05/09/2018 VASCULAR SURGERY CONSULTATION Dear Doctors: Mr. Mercer is a 63-year-old gentleman known to our Vascular Surgery Service Group secondary to histor y of end-stage renal disease, who has been on peritoneal dialysis catheter for his dialysis sessions, that presented to [facility] secondary to shortness of breath and abdominal disten tion. The patient had undergone a new right chest wall catheter that was placed in January, and he aiken s been having hemodialysis via the catheter since. Further, the patient has a history of AFib and aiken s been on Eliquis for treatment of that in regard to his anticoagulation. At his dialysis center, th e patient did have peritoneal fluid that turned out to be positive for group B strep and is currently being treated with antibiotics. REVIEW OF SYSTEMS: A 14-point review performed and negative except what is mentioned in the HPI. PAST MEDICAL HISTORY: Entails coronary artery disease, hypertension, end-stage renal disease, hyperc holesterolemia, diabetes, bilateral lower extremity venous insufficiency, hepatitis B exposure, diabe tic ulcers. PAST SURGICAL HISTORY: Cataract surgery, hernia repair, peritoneal dialysis catheter placement, donny nary stents x2 in 2018, right chest wall catheter. SOCIAL HISTORY: Former smoker. Currently denies tobacco, alcohol or illicit drug use. FAMILY HISTORY: Positive for hypertension, diabetes. PHYSICAL EXAMINATION: GENERAL: Alert, oriented x3, afebrile. HEENT: Normocephalic, atraumatic. Mucosa moist. NECK: Supple. No carotid bruit. PULMONARY: Coarse breath sounds bilaterally. Crackles at the bases. CARDIOVASCULAR: S1, S2 present. Irregular. ABDOMEN: Softly distended, nontender. Peritoneal dialysis catheter in the left lower quadrant. EXTREMITIES: Right Lower Extremity: Palpable femoral pulse. Nonpalpable pedal pulse. Motor and sensory intact. Capillary refill 3 seconds. Presence of lipodermatosclerosis throughout the lower leg. Left Lower Extremity: Palpable femoral pulse. Nonpalpable pedal pulse. Motor and sensory intact. Capillary refill 3 seconds. Presence of lipodermatosclerosis of the lower leg. Bilateral Upper Extremities: Palpable brachial pulse. Motor and sensory intact. Capillary refill 3 seconds. ASSESSMENT AND PLAN: 1. End-stage renal disease: In view that the patient is growing positive cultures from his peritone al dialysis catheter and as it has been nonfunctional, we will plan to remove the catheter for him in the coming days. The patient will need to undergo cardiac evaluation, as the patient has atrial fib rillation and has had history of coronary artery disease, prior to our surgical intervention as the p atient will require general anesthesia for this procedure. We will plan to obtain bilateral upper extremity vein mapping for eventual fistula creation. This ca n also be done during this hospitalization once we have removed his peritoneal dialysis catheter. 2. Bilateral lower extremity venous insufficiency: At the moment, the patient does not have any act smitha ulcers in the areas of lipodermatosclerosis; however, we will continue to monitor this. The guillermo ent is scheduled for undergoing bilateral lower extremity venous reflux studies to further delineate his deep and superficial systems. Discussed findings, plan and management with the patient and he understands all that is involved. Optimize vascular status (BP meds, diet, nutrition, exercise, sugar control, antiplatelets). Thank you for allowing us to partake in the care of your patient. Please call with any questions. Dictated By: KANNAN MORROW/RAJNI Conf#: [id number] DID#: [id number] CC: MIMI SANDOVAL MD;*EndCC*
[2018-05-09] MEDS: ATORVASTATIN 80 MG TAB PO SCH (20:58)
[2018-05-10 01:48] VITALS: BP 114/80; RESP 18
[2018-05-10] MEDS: ACCU-CHEK XX SCH (02:00)
[2018-05-10 07:49] VITALS: BP 106/72; PULSE 79; RESP 18
[2018-05-10] MEDS: INSULIN ASPART [NOVOLOG] 3 ML PEN SC SCH ×4 (08:00→21:00)
[2018-05-10] MEDS: CALCIUM ACETATE 667 MG CAP PO SCH ×3 (08:00→17:44)
[2018-05-10] MEDS ORDERED: NPH, HUMAN INSULIN ISOPHANE 3ML VIAL SC ONE (08:30)
[2018-05-10] MEDS: CLOPIDOGREL 75 MG TAB PO SCH (08:33)
[2018-05-10] MEDS: MAGNESIUM OXIDE 400 MG TAB PO SCH ×2 (08:33→22:20)
[2018-05-10] MEDS: ALLOPURINOL 100 MG TAB PO SCH ×2 (08:33→21:41)
[2018-05-10] MEDS: AMIODARONE 200 MG TAB PO SCH ×2 (08:35→09:34)
[2018-05-10] MEDS: LOSARTAN 50 MG TAB PO SCH ×2 (08:36→09:33)
[2018-05-10] MEDS: METOPROLOL (XL) 100 MG TAB PO SCH ×2 (08:36→09:33)
[2018-05-10] MEDS: NPH, HUMAN INSULIN ISOPHANE 3ML VIAL SC SCH (08:36)
--- NOTE | 2018-05-10 11:46 | CONS ---
Date/Time of Note Date/Time of Note DATE: 05/10/18 TIME: 11:46 Assessment/Plan Assessment/Plan Additional Assessment/Plan 1. Acute fluid overload with significant LE edema despite being on 4 times a week HD regimen 2. Concerned about PD catheter infection due to constant pain and cough 3. ESRD on HD , and [place] [facility] 4. H/o HTN 5. H/o DM II 6. H/o HL Plan: s/p HD x 2 days in a row, IR attempted removal of PD catehter but it was uns uccessful, Surgical consultation is obtained, s/o Lexiscan which showed EF 39% with moderate size non reversible perfusion defect, pt is clared with moderate risk as per cardiology NPo after Midnight Vascular surgery Felix to plan for OR tomorro w pt is currently on HD regimen through his R chest permacath HD ordered for tomorrow, pt regular schedule is TTS will follow up Consultation Date/Type/Reason Admit Date/Time May 08, 2018 at 11:10 Initial Consult Date 05/08/18 Type of Consultation: NEPHROLOGY Requesting Provider: DULCE MARIA TRUONG MD Exam/Review of Systems Vital Signs Vitals Vital Signs Date Temp Pulse Resp B/P (MAP) Pulse Ox O2 O2 Flow FiO2 Time Delivery Rate 05/10/18 99.1 79 18 106/72 96 07:49 (83) 05/09/18 Room Air 13:10 05/08/18 21 09:24 Intake and Output 05/09/18 05/09/18 05/10/18 1515:00 23:00 07:00 IntakeIntake Total 620 ml 320 ml OutputOutput Total 2200 ml 30 ml 0 ml BalanceBalance -1580 ml 290 ml 0 ml Exam Constitutional: alert, awake Respiratory: congested cough, crackles/rales, diminished breath sounds Cardiovascular: regular rate and rhythm, nl pulses Gastrointestinal: soft, distended, tender (at PD catheter site on deep palpation ) Musculoskeletal: muscle weakness, swelling (2-3+ pitting edema ) Extremities: normal pulses Neurological: LADLE LINER II-XII intact, nl mental status, nl speech, nl strength Medications Medications Current Medications Heparin Sodium (Porcine) (Heparin (1000 Units/ml)) 4,000 unit AFTER DIALYSIS CATHETER Last administered on 05/09/18 13:33; Admin Dose 4,000 UNIT; Start 05/08/18 at 11:30 Albumin Human 100 ml @ 100 mls/hr WITH DIALYSIS PRN IV SBP less than 90 mm Hg ; Start 05/08/18 at 11:30 Sodium Chloride (NS) -To prime the dialy... DIRECTED FOR HD PRN IV SBP less than 90 mm hg ; Start 05/08/18 at 11:30 IV Flush (NS 3 ml) 3 ml PER PROTOCOL IV ; Start 05/08/18 at 13:30 Ondansetron HCl (Zofran Inj) 4 mg Q6H PRN IV NAUSEA AND/OR VOMITING; Start 05/08/18 at 13:30 Acetaminophen (Tylenol Tab) 650 mg Q6H PRN PO PAIN LEVEL 1-3 OR FEVER; Start 05/08/18 at 13:30 Allopurinol (Zyloprim) 100 mg BID PO Last administered on 05/10/18 08:33; Admin Dose 100 MG; Start 05/08/18 at 21:00 Amiodarone HCl (Cordarone) 200 mg DAILY PO Last administered on 05/10/18 09:34; Admin Dose 200 MG; Start 05/09/18 at 09:00 Atorvastatin Calcium (Lipitor) 80 mg QHS PO Last administered on 05/09/18at 20:58; Admin Dose 80 MG; Start 05/08/18 at 21:00 Calcium Acetate (Phoslo) 667 mg WITH MEALS PO Last administered on 05/09/18at 17:40; Admin Dose 667 MG; Start 05/08/18 at 18:00 Clopidogrel Bisulfate (plaVIX) 75 mg DAILY PO Last administered on 05/10/18 08:33; Admin Dose 75 MG; Start 05/09/18 at 09:00 Insulin Aspart (Novolog Insulin Pen) 15 unit QPM SC Last administered on 21:56; Admin Dose 15 UNIT; Start 05/08/18 at 21:00; Status Hold Losartan Potassium (Cozaar) 100 mg DAILY PO Last administered on 05/10/18 09:33; Admin Dose 100 MG; Start 05/09/18 at 09:00 Magnesium Oxide (Mag-Ox 400) 400 mg BID PO Last administered on 05/10/18 08:33; Admin Dose 400 MG; Start 05/08/18 at 21:00 Metoprolol Succinate (Toprol Xl) 200 mg DAILY PO Last administered on 05/10/18at 09:33; Admin Dose 200 MG; Start 05/09/18 at 09:00 Diagnostic Test (Pha) (Accu-Chek) 1 ea 02 XX ; Start 05/09/18 at 02:00 Miscellaneous Information 1 ea NOTE XX ; Start 05/08/18 at 14:00 Glucose (Glutose) 15 gm Q15M PRN PO DECREASED GLUCOSE; Start 05/08/18 at 14:00 Glucose (Glutose) 22.5 gm Q15M PRN PO DECREASED GLUCOSE; Start 05/08/18 at 14:00 Dextrose (D50w Syringe) 25 ml Q15M PRN IV DECREASED GLUCOSE; Start 05/08/18 at 14:00 Dextrose (D50w Syringe) 50 ml Q15M PRN IV DECREASED GLUCOSE; Start 05/08/18 at 14:00 Glucagon (Glucagen) 1 mg Q15M PRN IM DECREASED GLUCOSE; Start 05/08/18 at 14:00 Glucose (Glutose) 15 gm Q15M PRN BUCCAL DECREASED GLUCOSE; Start 05/08/18 at 1 4:00 Diagnostic Test (Pha) (Accu-Chek) 1 ea 02 XX ; Start 05/11/18 at 02:00 Insulin Aspart (Novolog Insulin Pen) NOVOLOG *MILD* ALGORI... Q4 SC ; Start 05/10/18 at 13:00 Insulin Human NPH (Humulin N) 10 unit DAILY@08 SC ; Start 05/11/18 at 08:00; Status UNV Results Result Diagram: 05/10/18 0659 05/10/18 0659 Results 24 hrs Laboratory Tests Test 05/09/18 13:10 05/09/18 17:39 05/09/18 20:55 05/10/18 06:59 Bedside Glucose 95 167 160 White Blood 6.6 Count Red Blood Count 3.73 L Hemoglobin 10.6 L Hematocrit 35.0 L Mean Corpuscular 93.8 Volume Mean Corpuscular 28.4 L Hemoglobin Mean Corpuscular 30.3 L Hemoglobin Vivian nt Red Cell 16.2 H Distribution Width Platelet Count 201 Mean Platelet 9.1 Volume Immature 0.300 Granulocytes % Neutrophils % 58.6 Lymphocytes % 15.5 Monocytes % 13.4 H Eosinophils % 11.0 H Basophils % 1.2 Nucleated Red 0.0 Blood Cells % Immature 0.020 Granulocytes # Neutrophils # 3.8 Lymphocytes # 1.0 Monocytes # 0.9 Eosinophils # 0.7 H Basophils # 0.1 Nucleated Red 0.0 Blood Cells # Sodium Level 139 Potassium Level 4.1 Chloride Level 99 Carbon Dioxide 26 Level Anion Gap 14 H Blood Urea 42 H Nitrogen Creatinine 6.67 H Est Glomerular 8 L Filtrat Rate mL/min Glucose Level 128 Calcium Level 8.7 Phosphorus Level 3.8 Magnesium Level 2.1 Total Bilirubin 0.1 L Direct Bilirubin 0.00 Indirect 0.1 Bilirubin Aspartate Amino 22 Transf (AST/SGOT ) Alanine 11 L Aminotransferase (ALT/SGPT) Alkaline 96 Phosphatase Total Protein 7.4 Albumin 3.7 Globulin 3.70 H Albumin/Globulin 1.00 Ratio Test 05/10/18 08:29 05/10/18 09:51 Bedside Glucose 137 134 FADI IRWIN MD May 10, 2018 11:46
[2018-05-10] MEDS ORDERED: REGADENOSON 0.4 MG/5 ML SYG ONE (12:13)
--- NOTE | 2018-05-10 12:33 | CONS ---
DATE OF ADMISSION: 05/08/2018 DATE OF CONSULTATION: 05/10/2018 REASON FOR CONSULTATION: Preoperative evaluation. REQUESTING PHYSICIAN: Mimi Bey MD from the hospitalist service, Fadi Crystal MD from nephrology service and Misha Baumann MD from the vascular surgery service. HISTORY OF PRESENT ILLNESS: Mr. Mercer is a 63-year-old male with history of coronary artery disease, status post initial PCI in 2008 and PCI x4 in 10/2017, end-stage renal disease, on hemodialysis, diabetes mellitus, hypertension, dyslipidemia, who presents with shortness of breath and undergoes a Tuesday, , Tuesday dialysis and had to get an extra session last week. The patient denied associated chest pain. Upon arrival, temperature of 97.2, blood pressure 123/63, pulse 60, respiration 18, sat 98%. The patient's labs were notable for white count of 8.3, hemoglobin 7.2, platelet count 195. Sodium of 140, potassium 5.1, creatinine of 9.23, BUN 67. Troponin negative. The patient underwent a chest x-ray revealing mild cardiomegaly, mild pulmonary vascular congestion. The patient's electrocardiogram revealed sinus bradycardia, rate of 59 with right superior axis deviation, low voltage, nonspecific ST-T wave abnormalities and poor R-wave progression across the anterior precordial leads. The patient was admitted to the floor and since admit to floor, denies ongoing shortness breath at this time. Had renal blood pressure control. PAST MEDICAL HISTORY: As above in HPI. The patient does have a history of recent onset atrial fibrillation during prior admission for which he is now on amiodarone and beta antonella and per report had not been on Eliquis, but meds from home reveal Plavix. PAST MEDICAL HISTORY: As above in HPI. MEDICATIONS CURRENTLY IN HOSPITAL: 1. Amiodarone 200 mg daily. 2. Plavix 75 mg daily. 3. Losartan 100 mg daily. 4. Toprol-XL 200 mg daily. 5. Allopurinol 100 mg b.i.d. 6. Lipitor 80 mg at bedtime. 7. Magnesium oxide. 8. Phos-Lo. 9. Tylenol p.r.n. 10. Heparin subcutaneously. ALLERGIES: No known drug allergies. SOCIAL HISTORY: No current tobacco, ETOH or illicit drug use. FAMILY HISTORY: No sudden cardiac or early CAD. REVIEW OF SYSTEMS: As above in HPI. CONSTITUTIONAL: No fevers, chills. PULMONARY: Positive shortness of breath. CARDIOVASCULAR: No current chest pain. GASTROINTESTINAL: No vomiting. GENITOURINARY: End-stage renal disease. PSYCHIATRIC: No documented psych history. NEUROLOGIC: No documented history of CVA. ENDOCRINE: Diabetes mellitus. PHYSICAL EXAMINATION: VITAL SIGNS: Temperature 99.1, blood pressure 106/72, pulse 97, respiratory rate 18, satting 96%. GENERAL: The patient is alert, awake. claims mild shortness of breath. NECK: JVD approximately 9 cm of water. CHEST: Fair movement throughout with mildly decreased breath sounds at bases bilaterally. HEART: Regular rate and rhythm. Normal S1, S2, I/ systolic murmur. Nondisplaced PMI. ABDOMEN: Positive bowel sounds, soft. EXTREMITIES: Chronic venous stasis changes. Difficult to palpate distal pulses bilaterally, posterior tibial. LABORATORY DATA: Most recently from today, sodium 139, potassium 4.1, creatinine 3.6, BUN 42. White blood cell count 6.6, hemoglobin 10.6, platelet count 201. IMAGING STUDIES: As above in HPI. Chest x-ray from the revealing mild cardiomegaly, mild pulmonary vascular congestion. ECG: As above in HPI. No further electrocardiograms for my review at this time. IMPRESSION: 1. Preoperative evaluation in patient who was to undergo AV fistula creation and removal of PermCath. 2. History of stents, recently. 3. Hypertension, under reasonable control. 4. Dyslipidemia. 5. History of percutaneous transluminal coronary angioplasty and stent placement, most recently 10/2017, unknown vessels. 6. Abnormal electrocardiogram, poor R-wave progression across the anterior precordial leads and low voltage. 7. Diastolic dysfunction with the EF approximately 50% by echo 01/10/2018, interpreted by alternative cardiology technician. 8. Shortness of breath. 9. Congestive heart failure/volume overload by echo would be diastolic, acute on chronic. RECOMMENDATIONS: 1. At this time, would maintain patient on a baseline antihypertensives with metoprolol and Losartan. 2. Continue the patient's antiplatelet therapy with Plavix. 3. Continue the patient's amiodarone in an attempt to maintain sinus rhythm. 4. Continue the patient's current statin therapy and adjust it according to a fasting lipid panel to be checked. 5. The patient has a negative troponin x1 and is in active chest pain. 6. We will followup patient's 2D echo done for reassessment of ejection fraction, wall motion and major valvular abnormalities. 7. The patient is scheduled for a cardiac stress test today in order to assure that the patient has no active ischemia prior to pending surgery tomorrow. Thank you for allowing me to take part in the care of this patient. I will continue following along very closely with you with further recommendations to be made as the patient progresses through his inpatient hospital clinical course. Dictated By: MIMI ZAVALA/RAJNI Conf#: [id number] DID#: [id number] CC: MISHA BAUMANN MD; FADI CRYSTAL MD; MIMI BEY MD;*EndCC* MTDD
[2018-05-10] MEDS ORDERED: INSULIN ASPART [NOVOLOG] 3 ML PEN SC SCH (13:00)
--- NOTE | 2018-05-10 15:02 | PN ---
Date/Time of Note Date/Time of Note DATE: 05/10/18 TIME: 14:59 Assessment/Plan VTE Prophylaxis Risk score (from Nsg)>0 risk: 7 SCD applied (from Nsg): Yes SCD contraindicated: low risk/ambulating Pharmacological prophylaxis: NA/contraindicated Pharm contraindication: low risk/ambulating Lines/Catheters IV Catheter Type (from Nrsg): Peripheral IV Assessment/Plan Assessment/Plan 63 yo man with history of ESRD on HD who presents with shortness of breath. #Dyspnea - CXR with pulmonary vascular congestion - Patient is anuric - Now significantly improved after dialysis. #History of bacterial peritonitis - According to Dr Crystal, peritoneal fluid in march grew group B strep - Currently patient with no abdominal pain, no leukocytosis or fever or other signs of sepsis. - Dr. Armstrong consulted, will plan for surgical removal of catheter as it is no longer needed - Will hold off on antibiotics - Patient is medically optimized to proceed with intermediate-risk intraperitoneal surgery. No further workup necessary. #IDDM - Continue home regimen of NPH and regular - also RISS #A fib, paroxysmal - Currently in sinus. - Rhythm controlled on amiodarone - Restart eliquis after peritoneal catheter removal and any other procedures. #HTN - Resume home antihypertensives. Subjective 24 Hr Interval Summary Free Text/Dictation Got dialysis yesterday. IR tried to removal the peritoneal dialysis catheter but unsuccessful. Had cardiac stress test today. Afterwards feeling well, no complaints. Exam/Review of Systems Vital Signs Vitals Vital Signs Date Temp Pulse Resp B/P (MAP) Pulse Ox O2 O2 Flow FiO2 Time Delivery Rate 05/10/18 99.1 79 18 106/72 96 07:49 (83) 05/09/18 Room Air 13:10 05/08/18 21 09:24 Intake and Output 05/09/18 05/09/18 05/10/18 1515:00 23:00 07:00 IntakeIntake Total 620 ml 320 ml OutputOutput Total 2200 ml 30 ml 0 ml BalanceBalance -1580 ml 290 ml 0 ml Exam Gen: Well appearing overweight man in no distress Eyes: Miotic unreactive pupils bilaterally, no icterus. HEENT: Moist mucous membranes clear oropharynx Chest: R chest permacath. Pulm: Wheezing throughout. Breathing comfortably on room air. Card: Regular rate and rhythm, no murmurs Abd: Distended, soft, catheter in place clean appearing Ext: Venous stasis changes with skin darkening and thickening. Medications Medications Current Medications Heparin Sodium (Porcine) (Heparin (1000 Units/ml)) 4,000 unit AFTER DIALYSIS CATHETER Last administered on 05/09/18at 13:33; Admin Dose 4,000 UNIT; Start 05/08/18 at 11:30 Albumin Human 100 ml @ 100 mls/hr WITH DIALYSIS PRN IV SBP less than 90 mm Hg ; Start 05/08/18 at 11:30 Sodium Chloride (NS) -To prime the dialy... DIRECTED FOR HD PRN IV SBP less than 90 mm hg ; Start 05/08/18 at 11:30 IV Flush (NS 3 ml) 3 ml PER PROTOCOL IV ; Start 05/08/18 at 13:30 Ondansetron HCl (Zofran Inj) 4 mg Q6H PRN IV NAUSEA AND/OR VOMITING; Start 05/08/18 at 13:30 Acetaminophen (Tylenol Tab) 650 mg Q6H PRN PO PAIN LEVEL 1-3 OR FEVER; Start 05/08/18 at 13:30 Allopurinol (Zyloprim) 100 mg BID PO Last administered on 05/10/18at 08:33; Admin Dose 100 MG; Start 05/08/18 at 21:00 Amiodarone HCl (Cordarone) 200 mg DAILY PO Last administered on 05/10/18at 09:34; Admin Dose 200 MG; Start 05/09/18 at 09:00 Atorvastatin Calcium (Lipitor) 80 mg QHS PO Last administered on 05/09/18at 20:58; Admin Dose 80 MG; Start 05/08/18 at 21:00 Calcium Acetate (Phoslo) 667 mg WITH MEALS PO Last administered on 05/09/18at 17:40; Admin Dose 667 MG; Start 05/08/18 at 18:00 Clopidogrel Bisulfate (plaVIX) 75 mg DAILY PO Last administered on 05/10/18 08:33; Admin Dose 75 MG; Start 05/09/18 at 09:00 Insulin Aspart (Novolog Insulin Pen) 15 unit QPM SC Last administered on 05/08/18at 21:56; Admin Dose 15 UNIT; Start 05/08/18 at 21:00; Status Hold Losartan Potassium (Cozaar) 100 mg DAILY PO Last administered on 05/10/18at 09:33; Admin Dose 100 MG; Start 05/09/18 at 09:00 Magnesium Oxide (Mag-Ox 400) 400 mg BID PO Last administered on 05/10/18at 08:33; Admin Dose 400 MG; Start 05/08/18 at 21:00 Metoprolol Succinate (Toprol Xl) 200 mg DAILY PO Last administered on 05/10/18 at 09:33; Admin Dose 200 MG; Start 05/09/18 at 09:00 Diagnostic Test (Pha) (Accu-Chek) 1 ea 02 XX ; Start 05/09/18 at 02:00 Miscellaneous Information 1 ea NOTE XX ; Start 05/08/18 at 14:00 Glucose (Glutose) 15 gm Q15M PRN PO DECREASED GLUCOSE; Start 05/08/18 at 14:00 Glucose (Glutose) 22.5 gm Q15M PRN PO DECREASED GLUCOSE; Start 05/08/18 at 14:00 Dextrose (D50w Syringe) 25 ml Q15M PRN IV DECREASED GLUCOSE; Start 05/08/18 at 14:00 Dextrose (D50w Syringe) 50 ml Q15M PRN IV DECREASED GLUCOSE; Start 05/08/18 at 14:00 Glucagon (Glucagen) 1 mg Q15M PRN IM DECREASED GLUCOSE; Start 05/08/18 at 14:00 Glucose (Glutose) 15 gm Q15M PRN BUCCAL DECREASED GLUCOSE; Start 05/08/18 at 14:00 Diagnostic Test (Pha) (Accu-Chek) 1 ea 02 XX ; Start 05/11/18 at 02:00 Insulin Aspart (Novolog Insulin Pen) NOVOLOG *MILD* ALGORI... Q4 SC ; Start 05/10/18 at 13:00 Insulin Human NPH (Humulin N) 10 unit DAILY@08 SC ; Start 05/11/18 at 08:00 Results Result Diagram: 05/10/18 0659 05/10/18 0659 Results 24 hrs Laboratory Tests Test 05/09/18 17:39 05/09/18 20:55 05/10/18 06:59 05/10/18 08:29 Bedside Glucose 167 160 137 White Blood 6.6 Count Red Blood Count 3.73 L Hemoglobin 10.6 L Hematocrit 35.0 L Mean Corpuscular 93.8 Volume Mean Corpuscular 28.4 L Hemoglobin Mean Corpuscular 30.3 L Hemoglobin Vivian nt Red Cell 16.2 H Distribution Width Platelet Count 201 Mean Platelet 9.1 Volume Immature 0.300 Granulocytes % Neutrophils % 58.6 Lymphocytes % 15.5 Monocytes % 13.4 H Eosinophils % 11.0 H Basophils % 1.2 Nucleated Red 0.0 Blood Cells % Immature 0.020 Granulocytes # Neutrophils # 3.8 Lymphocytes # 1.0 Monocytes # 0.9 Eosinophils # 0.7 H Basophils # 0.1 Nucleated Red 0.0 Blood Cells # Sodium Level 139 Potassium Level 4.1 Chloride Level 99 Carbon Dioxide 26 Level Anion Gap 14 H Blood Urea 42 H Nitrogen Creatinine 6.67 H Est Glomerular 8 L Filtrat Rate mL/min Glucose Level 128 Calcium Level 8.7 Phosphorus Level 3.8 Magnesium Level 2.1 Total Bilirubin 0.1 L Direct Bilirubin 0.00 Indirect 0.1 Bilirubin Aspartate Amino 22 Transf (AST/SGOT ) Alanine 11 L Aminotransferase (ALT/SGPT) Alkaline 96 Phosphatase Total Protein 7.4 Albumin 3.7 Globulin 3.70 H Albumin/Globulin 1.00 Ratio Test 05/10/18 09:51 05/10/18 11:15 05/10/18 14:43 Bedside Glucose 134 117 Troponin I < 0.012 MIMI SANDOVAL MD May 10, 2018 15:02
--- NOTE | 2018-05-10 15:05 | CARRPT ---
DATE OF PROCEDURE: 05/10/2018 TYPE OF PROCEDURE: Lexiscan Cardiolite stress test, electrocardiogram portion. REASON FOR STRESS TESTING: Preoperative evaluation, abnormal electrocardiogram, history of stent. BASELINE VITAL SIGNS AND ELECTROCARDIOGRAM: Pulse 80, blood pressure 106/66. Electrocardiogram reve als atrial fibrillation at a rate of 80 with right superior axis deviation, poor R-wave progression a cross the anterior precordial leads with nonspecific ST and T-wave abnormalities. PROCEDURE: The patient underwent standard Lexiscan infusion protocol for over 10 seconds followed by radiolabeled tracer. The patient's test was stopped due to completion of protocol. Maximum achieve d blood pressure during the test 105/67. Maximum heart rate during the test 94. ELECTROCARDIOGRAM FINDINGS: The patient did not develop any new Lexiscan-induced ST or T-wave change s from baseline abnormalities. No documented PVCs. SYMPTOMS: The patient had mild shortness of breath during stress test that resolved in recovery. No chest pain. IMPRESSION: 1. No Lexiscan-induced ST or T-wave changes from baseline abnormalities diagnostic of cardiac ischem ia. 2. No complaints of chest pain, but positive shortness of breath resolved in recovery. 3. No documented premature ventricular contractions during stress testing. 4. Report of nuclear images to follow in separate dictation. Dictated By: MIMI ZAVALA/RAJNI Conf#: [id number] DID#: [id number] CC: FADI IRWIN MD; DR. BAUMANN; MIMI SANDOVAL MD;*[facility]*
[2018-05-10 20:00] VITALS: BP 126/83; PULSE 87; RESP 19
[2018-05-10] MEDS: ATORVASTATIN 80 MG TAB PO SCH (21:41)
--- NOTE | 2018-05-10 23:47 | PN ---
Date/Time of Note Date/Time of Note DATE: 05/10/18 TIME: 23:47 Assessment/Plan Lines/Catheters IV Catheter Type (from Nrs): Peripheral IV Exam/Review of Systems Vital Signs Vitals Vital Signs Date Temp Pulse Resp B/P (MAP) Pulse Ox O2 O2 Flow FiO2 Time Delivery Rate 05/10/18 98.7 19 126/83 96 20:00 (97) 05/10/18 79 07:49 05/09/18 Room Air 13:10 05/08/18 21 09:24 Intake and Output 05/09/18 05/09/18 05/10/18 1515:00 23:00 07:00 IntakeIntake Total 620 ml 320 ml OutputOutput Total 2200 ml 30 ml 0 ml BalanceBalance -1580 ml 290 ml 0 ml Results Result Diagram: 05/10/18 0659 05/10/18 0659 KANNAN BAUMANN MD May 10, 2018 23:47
[2018-05-11] VITALS (28 sets, daily range): BP systolic 89–125; BP diastolic 59–89; PULSE 58–108; RESP 11–27
[2018-05-11] MEDS: SOD CHLORIDE 0.9% 1,000 ML IV SCH ×2 (00:28→19:56)
[2018-05-11] MEDS ORDERED: ACCU-CHEK XX SCH (02:00)
[2018-05-11] MEDS: ACCU-CHEK XX SCH (02:00)
[2018-05-11] MEDS: INSULIN ASPART [NOVOLOG] 3 ML PEN SC SCH ×5 (08:00→20:33)
[2018-05-11] MEDS: CALCIUM ACETATE 667 MG CAP PO SCH ×4 (08:00→20:25)
[2018-05-11] MEDS: AMIODARONE 200 MG TAB PO SCH (08:19)
[2018-05-11] MEDS: NPH, HUMAN INSULIN ISOPHANE 3ML VIAL SC SCH (08:19)
[2018-05-11] MEDS: CLOPIDOGREL 75 MG TAB PO SCH (08:20)
[2018-05-11] MEDS: ALLOPURINOL 100 MG TAB PO SCH ×2 (08:20→20:25)
[2018-05-11] MEDS: MAGNESIUM OXIDE 400 MG TAB PO SCH ×2 (08:20→20:25)
[2018-05-11] MEDS: METOPROLOL (XL) 100 MG TAB PO SCH (08:20)
[2018-05-11] MEDS: LOSARTAN 50 MG TAB PO SCH (08:20)
[2018-05-11] MEDS ORDERED: ALBUMIN HUMAN 25% 100 ML IV PRN (10:30)
--- NOTE | 2018-05-11 12:00 | CONS ---
Date/Time of Note Date/Time of Note DATE: 05/11/18 TIME: 12:00 Assessment/Plan Assessment/Plan Additional Assessment/Plan 1. Acute fluid overload with significant LE edema despite being on 4 times a week HD regimen 2. Concerned about PD catheter infection due to constant pain and cough 3. ESRD on HD , and Tuesday Schedule at [facility] [facility] 4. H/o HTN 5. H/o DM II 6. H/o HL Plan: s/p HD x 2 days in a row, IR attempted removal of PD catehter but it was uns uccessful due to adhesions and catheter was stucked there s/p Lexiscan which showed EF 39% with moderate size non reversible perfusion defect, pt is clared with moderate risk as per cardiology S/p Laproscopic lysis of adhesions and removal of PD catheter today by Tracy Armstrong, appreciate his help s/p HD today 100ml removed through left chest permacath, NO plan for HD on Tuesday Ok to d/c home on Tuesday pt regular schedule for HD is , , Tuesday, next HD will be at HD unit on Tuesday will follow up Consultation Date/Type/Reason Admit Date/Time May 10, 2018 at 17:22 Initial Consult Date 05/08/18 Type of Consultation: NEPHROLOGY Requesting Provider: DULCE MARIA TRUONG MD 24 HR Interval Summary Free Text/Dictation plan for PD catheter removal today, HD today Exam/Review of Systems Vital Signs Vitals Vital Signs Date Temp Pulse Resp B/P (MAP) Pulse Ox O2 O2 Flow FiO2 Time Delivery Rate 05/11/18 82 11:25 05/11/18 20 105/73 Nasal 2.0 08:20 (84) Cannula 05/11/18 98.4 100 07:47 05/08/18 21 09:24 Intake and Output 05/10/18 05/10/18 05/11/18 1414:59 22:59 06:59 IntakeIntake Total 240 ml 120 ml BalanceBalance 240 ml 120 ml Exam Constitutional: alert, awake Respiratory: congested cough, crackles/rales, diminished breath sounds Cardiovascular: regular rate and rhythm, nl pulses Gastrointestinal: soft, distended, tender (at PD catheter site on deep palpation ) Musculoskeletal: muscle weakness, swelling (2-3+ pitting edema ) Extremities: normal pulses Neurological: WARP SPOOLER II-XII intact, nl mental status, nl speech, nl strength Medications Medications Current Medications Heparin Sodium (Porcine) (Heparin (1000 Units/ml)) 4,000 unit AFTER DIALYSIS CATHETER Last administered on 05/09/18 13:33; Admin Dose 4,000 UNIT; Start 05/08/18 at 11:30 Sodium Chloride (NS) -To prime the dialy... DIRECTED FOR HD PRN IV SBP less than 90 mm hg ; Start 05/08/18 at 11:30 IV Flush (NS 3 ml) 3 ml PER PROTOCOL IV ; Start 05/08/18 at 13:30 Ondansetron HCl (Zofran Inj) 4 mg Q6H PRN IV NAUSEA AND/OR VOMITING; Start 05/08/18 at 13:30 Acetaminophen (Tylenol Tab) 650 mg Q6H PRN PO PAIN LEVEL 1-3 OR FEVER; Start 05/08/18 at 13:30 Allopurinol (Zyloprim) 100 mg BID PO Last administered on 05/10/18 21:41; Admin Dose 100 MG; Start 05/08/18 at 21:00 Amiodarone HCl (Cordarone) 200 mg DAILY PO Last administered on 05/10/18 09:34; Admin Dose 200 MG; Start 05/09/18 at 09:00 Atorvastatin Calcium (Lipitor) 80 mg QHS PO Last administered on 05/10/18 21:41; Admin Dose 80 MG; Start 05/08/18 at 21:00 Calcium Acetate (Phoslo) 667 mg WITH MEALS PO Last administered on 05/09/18at 17:40; Admin Dose 667 MG; Start 05/08/18 at 18:00 Clopidogrel Bisulfate (plaVIX) 75 mg DAILY PO Last administered on 05/10/18 08:33; Admin Dose 75 MG; Start 05/09/18 at 09:00 Insulin Aspart (Novolog Insulin Pen) 15 unit QPM SC Last administered on 05/08/18 21:56; Admin Dose 15 UNIT; Start 05/08/18 at 21:00 Losartan Potassium (Cozaar) 100 mg DAILY PO Last administered on 05/10/18 09:33; Admin Dose 100 MG; Start 05/09/18 at 09:00 Magnesium Oxide (Mag-Ox 400) 400 mg BID PO Last administered on 05/10/18at 22:20; Admin Dose 400 MG; Start 05/08/18 at 21:00 Metoprolol Succinate (Toprol Xl) 200 mg DAILY PO Last administered on 05/10/18at 09:33; Admin Dose 200 MG; Start 05/09/18 at 09:00 Miscellaneous Information 1 ea NOTE XX ; Start 05/08/18 at 14:00 Glucose (Glutose) 15 gm Q15M PRN PO DECREASED GLUCOSE; Start 05/08/18 at 14:00 Glucose (Glutose) 22.5 gm Q15M PRN PO DECREASED GLUCOSE; Start 05/08/18 at 14:00 Dextrose (D50w Syringe) 25 ml Q15M PRN IV DECREASED GLUCOSE; Start 05/08/18 at 14:00 Dextrose (D50w Syringe) 50 ml Q15M PRN IV DECREASED GLUCOSE; Start 05/08/18 at 14:00 Glucagon (Glucagen) 1 mg Q15M PRN IM DECREASED GLUCOSE; Start 05/08/18 at 14:00 Glucose (Glutose) 15 gm Q15M PRN BUCCAL DECREASED GLUCOSE; Start 05/08/18 at 14:00 Insulin Human NPH (Humulin N) 10 unit DAILY@08 SC Last administered on 05/11/18at 08:19; Admin Dose 10 UNIT; Start 05/11/18 at 08:00 Diagnostic Test (Pha) (Accu-Chek) 1 ea 02 XX ; Start 05/11/18 at 02:00 Insulin Aspart (Novolog Insulin Pen) NOVOLOG *MILD* ALGORITHM WITH MEALS BEDTIME SC ; Start 05/10/18 at 18:00 Sodium Chloride 1,000 ml @ 40 mls/hr Q24H IV Last administered on 05/11/18at 00:28; Admin Dose 40 MLS/HR; Start 05/11/18 at 00:00 Albumin Human 100 ml @ 100 mls/hr WITH DIALYSIS PRN IV SBP less than 90 mm Hg ; Start 05/11/18 at 10:30 Results Result Diagram: 05/11/1831 05/11/18 0531 Results 24 hrs Laboratory Tests Test 05/10/18 14:43 05/10/18 17:37 05/10/18 21:21 05/11/18 05:31 Bedside Glucose 117 166 162 White Blood 7.5 Count Red Blood Count 3.63 L Hemoglobin 10.2 L Hematocrit 33.9 L Mean Corpuscular 93.4 Volume Mean Corpuscular 28.1 L Hemoglobin Mean Corpuscular 30.1 L Hemoglobin Vivian nt Red Cell 15.8 H Distribution Width Platelet Count 205 Mean Platelet 9.0 Volume Immature 0.400 Granulocytes % Neutrophils % 63.9 Lymphocytes % 11.6 L Monocytes % 12.2 H Eosinophils % 11.0 H Basophils % 0.9 Nucleated Red 0.0 Blood Cells % Immature 0.030 Granulocytes # Neutrophils # 4.8 Lymphocytes # 0.9 Monocytes # 0.9 Eosinophils # 0.8 H Basophils # 0.1 Nucleated Red 0.0 Blood Cells # Sodium Level 137 Potassium Level 4.7 Chloride Level 98 Carbon Dioxide 24 Level Anion Gap 15 H Blood Urea 60 H Nitrogen Creatinine 8.53 H Est Glomerular 6 L Filtrat Rate mL/min Glucose Level 179 Calcium Level 8.3 L Phosphorus Level 5.6 H Magnesium Level 2.2 Total Bilirubin 0.0 L Direct Bilirubin 0.00 Indirect 0.0 Bilirubin Aspartate Amino 23 Transf (AST/SGOT ) Alanine 10 L Aminotransferase (ALT/SGPT) Alkaline 96 Phosphatase Total Protein 7.1 Albumin 3.5 Globulin 3.60 H Albumin/Globulin 0.97 Ratio Triglycerides 60 Level Cholesterol 59 L Level LDL Cholesterol, 23 Calculated HDL Cholesterol 24 L Cholesterol/HDL 2.4 Ratio Test 05/11/18 08:17 Bedside Glucose 132 FADI IRWIN MD May 11, 2018 12:00
[2018-05-11] MEDS: HEPARIN 1000 UNITS/ML 10 ML INJ CATHETER SCH (12:07)
--- NOTE | 2018-05-11 15:40 | PREAC ---
Date/Time of Note Date/Time of Note DATE: 05/11/18 TIME: 15:38 Anesthesia Eval and Record Evaluation Time Pre-Procedure Interview DATE: 05/11/18 TIME: 15:38 Age 63 Sex male NPO: 8 hrs Preoperative diagnosis infected peritoneal dialysis catheter Planned procedure removal of infected dialysis catheter Past Medical History Past Medical History: Includes Cardio: HTN, CAD Endo: Diabetes Renal: ESRD on dialysis Heme: Anemia Surgery & Anesthesia Issues No known issue Meds Anticoagulation: No Beta Andreas within 24 hr: No Reason Beta Andreas not given: Pt. not on B-Andreas Active Scripts Losartan Potassium* (Losartan Potassium*) 100 Mg Tablet, 100 MG PO DAILY, #30 TAB Prov:BRADLEY OVALLE 01/14/18 Reported Medications Metoprolol Succinate* (Toprol XL*) 200 Mg Tab.sr.24h, 200 MG PO DAILY, #30 TAB 05/08/18 Magnesium Oxide* (Magnesium Oxide*) 400 Mg Tablet, 400 MG PO BID, TAB 05/08/18 Insulin Regular, Human (Humulin R) 100 Unit/1 Ml Vial, 15 UNIT IJ QPM, VIAL 05/08/18 Insulin NPH Human Isophane (Humulin N) 100 Unit/1 Ml Vial, 20 UNIT SQ QAM, VIAL 05/08/18 Clopidogrel Bisulfate (Clopidogrel) 75 Mg Tablet, 75 MG PO DAILY, #30 TAB 05/08/18 Atorvastatin* (Atorvastatin*) 80 Mg Tablet, 80 MG PO QHS, #30 TAB 05/08/18 Amiodarone Hcl* (Amiodarone Hcl*) 200 Mg Tablet, 200 MG PO DAILY, #30 TAB 05/08/18 Allopurinol* (Allopurinol*) 100 Mg Tablet, 100 MG PO BID, TAB 01/09/18 Calcium Acetate* (Calcium Acetate*) 667 Mg Capsule, 667 MG PO WITH MEALS, #90 CAP 01/09/18 Discontinued Scripts Insulin Aspart* (Novolog Insulin Pen*) 100 Unit/Ml Soln, 8 UNIT SC WITH MEALS for 30 Days Prov:BRADLEY OVALLE 01/14/18 [Insulin Glargine] 100 UNITS/ML SOLN No Conflict Check, 35 UNITS SC QHS for 30 Days Prov:BRADLEY OVALLE 01/14/18 Clopidogrel Bisulfate* (Clopidogrel Bisulfate*) 75 Mg Tablet, 75 MG PO DAILY, #30 TAB Prov:BRADLEY OVALLE 01/14/18 Aspirin* (Aspirin* EC) 81 Mg Tablet.dr, 81 MG PO DAILY, #30 TAB Prov:BRADLEY OVALLE 01/14/18 Atorvastatin* (Atorvastatin*) 80 Mg Tablet, 80 MG PO QHS, #30 TAB Prov:BRADLEY OVALLE 01/14/18 Metoprolol Succinate* (Toprol XL*) 200 Mg Tab.sr.24h, 200 MG PO DAILY, #30 TAB Prov:BRADLEY OVALLE 01/14/18 Furosemide* (Furosemide*) 40 Mg Tablet, 40 MG PO BID, #60 TAB Prov:BRADLEY VOALLE 01/14/18 Current Medications Heparin Sodium (Porcine) (Heparin (1000 Units/ml)) 4,000 unit AFTER DIALYSIS CATHETER Last administered on 05/11/18at 12:07; Admin Dose 4,000 UNIT; Start 05/08/18 at 11:30 Sodium Chloride (NS) -To prime the dialy... DIRECTED FOR HD PRN IV SBP less than 90 mm hg ; Start 05/08/18 at 11:30 IV Flush (NS 3 ml) 3 ml PER PROTOCOL IV ; Start 05/08/18 at 13:30 Ondansetron HCl (Zofran Inj) 4 mg Q6H PRN IV NAUSEA AND/OR VOMITING; Start 05/08/18 at 13:30 Acetaminophen (Tylenol Tab) 650 mg Q6H PRN PO PAIN LEVEL 1-3 OR FEVER; Start 05/08/18 at 13:30 Allopurinol (Zyloprim) 100 mg BID PO Last administered on 05/10/18at 21:41; Admin Dose 100 MG; Start 05/08/18 at 21:00 Amiodarone HCl (Cordarone) 200 mg DAILY PO Last administered on 05/10/18at 09:34; Admin Dose 200 MG; Start 05/09/18 at 09:00 Atorvastatin Calcium (Lipitor) 80 mg QHS PO Last administered on 05/10/18at 21:41; Admin Dose 80 MG; Start 05/08/18 at 21:00 Calcium Acetate (Phoslo) 667 mg WITH MEALS PO Last administered on 05/09/18at 17:40; Admin Dose 667 MG; Start 05/08/18 at 18:00 Clopidogrel Bisulfate (plaVIX) 75 mg DAILY PO Last administered on 05/10/18at 08:33; Admin Dose 75 MG; Start 05/09/18 at 09:00 Insulin Aspart (Novolog Insulin Pen) 15 unit QPM SC Last administered on 05/08/18at 21:56; Admin Dose 15 UNIT; Start 05/08/18 at 21:00 Losartan Potassium (Cozaar) 100 mg DAILY PO Last administered on 05/10/18at 09:33; Admin Dose 100 MG; Start 05/09/18 at 09:00 Magnesium Oxide (Mag-Ox 400) 400 mg BID PO Last administered on 05/10/18at 22:20; Admin Dose 400 MG; Start 05/08/18 at 21:00 Metoprolol Succinate (Toprol Xl) 200 mg DAILY PO Last administered on 05/10/18at 09:33; Admin Dose 200 MG; Start 05/09/18 at 09:00 Miscellaneous Information 1 ea NOTE XX ; Start 05/08/18 at 14:00 Glucose (Glutose) 15 gm Q15M PRN PO DECREASED GLUCOSE; Start 05/08/18 at 14:00 Glucose (Glutose) 22.5 gm Q15M PRN PO DECREASED GLUCOSE; Start 05/08/18 at 14:00 Dextrose (D50w Syringe) 25 ml Q15M PRN IV DECREASED GLUCOSE; Start 05/08/18 at 14:00 Dextrose (D50w Syringe) 50 ml Q15M PRN IV DECREASED GLUCOSE; Start 05/08/18 at 14:00 Glucagon (Glucagen) 1 mg Q15M PRN IM DECREASED GLUCOSE; Start 05/08/18 at 14:00 Glucose (Glutose) 15 gm Q15M PRN BUCCAL DECREASED GLUCOSE; Start 05/08/18 at 14:00 Insulin Human NPH (Humulin N) 10 unit DAILY@08 SC Last administered on 05/11/18at 08:19; Admin Dose 10 UNIT; Start 05/11/18 at 08:00 Diagnostic Test (Pha) (Accu-Chek) 1 ea 02 XX ; Start 05/11/18 at 02:00 Insulin Aspart (Novolog Insulin Pen) NOVOLOG *MILD* ALGORITHM WITH MEALS BEDTIME SC ; Start 05/10/18 at 18:00 Sodium Chloride 1,000 ml @ 40 mls/hr Q24H IV Last administered on 05/11/18at 00:28; Admin Dose 40 MLS/HR; Start 05/11/18 at 00:00 Albumin Human 100 ml @ 100 mls/hr WITH DIALYSIS PRN IV SBP less than 90 mm Hg Last administered on 05/11/18at 12:04; Admin Dose 100 MLS/HR; Start 05/11/18 at 10:30 Meds reviewed: Yes Allergies Coded Allergies: No Known Allergy (Unverified , 05/08/18) Allergies Reviewed: Yes Labs/Studies Labs Reviewed: Reviewed by anesthesiologist Result Diagram: 05/11/18 0531 05/11/18 0531 Laboratory Tests 05/11/18 05:31 test: N/A Studies: ECG, CXR Pre-procedure Exam Last vitals Vital Signs Date Temp Pulse Resp B/P (MAP) Pulse Ox O2 O2 Flow FiO2 Time Delivery Rate 05/11/18 98.9 80 18 115/71 100 13:28 (86) 05/11/18 Nasal 2.0 08:20 Cannula 05/08/18 21 09:24 Airway: Adequate mouth opening, Adequate thyromental dist Mallampati: Mallampati II Teeth: Normal Lung: Normal Heart: Normal ASA Physical Status ASA physical status: 3 Emergency: None Planned Anesthetic General/MAC: ETT Planned Pain Management Parenteral pain med Pre-operative Attestations Prior to commencing anesthesia and surgery, the patient was re-evaluated, there was verification of: *The patient's identity *The results of appropriate recent lab work and preoperative vital signs *The above evaluation not changing prior to induction *Anesthetic plan, risk benefits, alternative and complications discussed with patient/family; questions answered; patient/family understands, accepts and wishes to proceed. RYLEY TSANG May 11, 2018 15:40
--- NOTE | 2018-05-11 15:49 | HPN ---
Date/Time of Note Date/Time of Note DATE: 05/11/18 TIME: 15:48 Interval H&P Admission Note Pt. seen H&P reviewed: No system changes KANNAN BAUMANN MD May 11, 2018 15:49
--- NOTE | 2018-05-11 16:30 | PN ---
Date/Time of Note Date/Time of Note DATE: 05/11/18 TIME: 16:28 Assessment/Plan VTE Prophylaxis Risk score (from Nsg)>0 risk: 3 SCD applied (from Nsg): No SCD contraindicated: low risk/ambulating Pharmacological prophylaxis: NA/contraindicated Pharm contraindication: low risk/ambulating Lines/Catheters IV Catheter Type (from Nrsg): Peripheral IV Assessment/Plan Assessment/Plan 63 yo man with history of ESRD on HD who presents with shortness of breath. #Dyspnea - CXR with pulmonary vascular congestion - Patient is anuric - Now significantly improved after dialysis. #History of bacterial peritonitis - According to Dr Crystal, peritoneal fluid in march grew group B strep - Currently patient with no abdominal pain, no leukocytosis or fever or other signs of sepsis. - Dr. Armstrong consulted, will plan for surgical removal of catheter as it is no longer needed - Will hold off on antibiotics - Patient is medically optimized to proceed with intermediate-risk intraperitoneal surgery. No further workup necessary. #IDDM - Continue home regimen of NPH and regular - also RISS #A fib, paroxysmal - Currently in sinus. - Rhythm controlled on amiodarone - Restart eliquis after peritoneal catheter removal and any other procedures. #HTN - Resume home antihypertensives. Subjective 24 Hr Interval Summary Free Text/Dictation No acute overnight events. Got dialysis today, now to OR with Dr Armstrong for peritoneal catheter removal. Exam/Review of Systems Vital Signs Vitals Vital Signs Date Temp Pulse Resp B/P (MAP) Pulse Ox O2 O2 Flow FiO2 Time Delivery Rate 05/11/18 98.9 80 18 115/71 100 13:28 (86) 05/11/18 Nasal 2.0 08:20 Cannula 05/08/18 21 09:24 Intake and Output 05/10/18 05/10/18 05/11/18 1515:00 23:00 07:00 IntakeIntake Total 240 ml 120 ml BalanceBalance 240 ml 120 ml Exam Gen: Well appearing overweight man in no distress Eyes: Miotic unreactive pupils bilaterally, no icterus. HEENT: Moist mucous membranes clear oropharynx Chest: R chest permacath. Pulm: Wheezing throughout. Breathing comfortably on room air. Card: Regular rate and rhythm, no murmurs Abd: Distended, soft, catheter in place clean appearing Ext: Venous stasis changes with skin darkening and thickening. Medications Medications Current Medications Heparin Sodium (Porcine) (Heparin (1000 Units/ml)) 4,000 unit AFTER DIALYSIS CATHETER Last administered on 05/11/18 12:07; Admin Dose 4,000 UNIT; Start 05/08/18 at 11:30 Sodium Chloride (NS) -To prime the dialy... DIRECTED FOR HD PRN IV SBP less than 90 mm hg ; Start 05/08/18 at 11:30 IV Flush (NS 3 ml) 3 ml PER PROTOCOL IV ; Start 05/08/18 at 13:30 Ondansetron HCl (Zofran Inj) 4 mg Q6H PRN IV NAUSEA AND/OR VOMITING; Start 05/08/18 at 13:30 Acetaminophen (Tylenol Tab) 650 mg Q6H PRN PO PAIN LEVEL 1-3 OR FEVER; Start 05/08/18 at 13:30 Allopurinol (Zyloprim) 100 mg BID PO Last administered on 05/10/18 21:41; Admin Dose 100 MG; Start 05/08/18 at 21:00 Amiodarone HCl (Cordarone) 200 mg DAILY PO Last administered on 05/10/18 09:34; Admin Dose 200 MG; Start 05/09/18 at 09:00 Atorvastatin Calcium (Lipitor) 80 mg QHS PO Last administered on 05/10/18 21:41; Admin Dose 80 MG; Start 05/08/18 at 21:00 Calcium Acetate (Phoslo) 667 mg WITH MEALS PO Last administered on 05/09/18 17:40; Admin Dose 667 MG; Start 05/08/18 at 18:00 Clopidogrel Bisulfate (plaVIX) 75 mg DAILY PO Last administered on 05/10/18 08:33; Admin Dose 75 MG; Start 05/09/18 at 09:00 Insulin Aspart (Novolog Insulin Pen) 15 unit QPM SC Last administered on 05/08/18 21:56; Admin Dose 15 UNIT; Start 05/08/18 at 21:00 Losartan Potassium (Cozaar) 100 mg DAILY PO Last administered on 05/10/18 09:33; Admin Dose 100 MG; Start 05/09/18 at 09:00 Magnesium Oxide (Mag-Ox 400) 400 mg BID PO Last administered on 05/10/18 22:20; Admin Dose 400 MG; Start 05/08/18 at 21:00 Metoprolol Succinate (Toprol Xl) 200 mg DAILY PO Last administered on 05/10/18at 09:33; Admin Dose 200 MG; Start 05/09/18 at 09:00 Miscellaneous Information 1 ea NOTE XX ; Start 05/08/18 at 14:00 Glucose (Glutose) 15 gm Q15M PRN PO DECREASED GLUCOSE; Start 05/08/18 at 14:00 Glucose (Glutose) 22.5 gm Q15M PRN PO DECREASED GLUCOSE; Start 05/08/18 at 14:00 Dextrose (D50w Syringe) 25 ml Q15M PRN IV DECREASED GLUCOSE; Start 05/08/18 at 14:00 Dextrose (D50w Syringe) 50 ml Q15M PRN IV DECREASED GLUCOSE; Start 05/08/18 at 14:00 Glucagon (Glucagen) 1 mg Q15M PRN IM DECREASED GLUCOSE; Start 05/08/18 at 14:00 Glucose (Glutose) 15 gm Q15M PRN BUCCAL DECREASED GLUCOSE; Start 05/08/18 at 14:00 Insulin Human NPH (Humulin N) 10 unit DAILY@08 SC Last administered on 05/11/18at 08:19; Admin Dose 10 UNIT; Start 05/11/18 at 08:00 Diagnostic Test (Pha) (Accu-Chek) 1 ea 02 XX ; Start 05/11/18 at 02:00 Insulin Aspart (Novolog Insulin Pen) NOVOLOG *MILD* ALGORITHM WITH MEALS BEDTI HI SC ; Start 05/10/18 at 18:00 Sodium Chloride 1,000 ml @ 40 mls/hr Q24H IV Last administered on 05/11/18at 00:28; Admin Dose 40 MLS/HR; Start 05/11/18 at 00:00 Albumin Human 100 ml @ 100 mls/hr WITH DIALYSIS PRN IV SBP less than 90 mm Hg Last administered on 05/11/18at 12:04; Admin Dose 100 MLS/HR; Start 05/11/18 at 10:30 Results Result Diagram: 05/11/18 0531 05/11/18 0531 Results 24 hrs Laboratory Tests Test 05/10/18 17:37 05/10/18 21:21 05/11/18 05:31 05/11/18 08:17 Bedside Glucose 166 162 132 White Blood 7.5 Count Red Blood Count 3.63 L Hemoglobin 10.2 L Hematocrit 33.9 L Mean Corpuscular 93.4 Volume Mean Corpuscular 28.1 L Hemoglobin Mean Corpuscular 30.1 L Hemoglobin Vivian nt Red Cell 15.8 H Distribution Width Platelet Count 205 Mean Platelet 9.0 Volume Immature 0.400 Granulocytes % Neutrophils % 63.9 Lymphocytes % 11.6 L Monocytes % 12.2 H Eosinophils % 11.0 H Basophils % 0.9 Nucleated Red 0.0 Blood Cells % Immature 0.030 Granulocytes # Neutrophils # 4.8 Lymphocytes # 0.9 Monocytes # 0.9 Eosinophils # 0.8 H Basophils # 0.1 Nucleated Red 0.0 Blood Cells # Sodium Level 137 Potassium Level 4.7 Chloride Level 98 Carbon Dioxide 24 Level Anion Gap 15 H Blood Urea 60 H Nitrogen Creatinine 8.53 H Est Glomerular 6 L Filtrat Rate mL/min Glucose Level 179 Calcium Level 8.3 L Phosphorus Level 5.6 H Magnesium Level 2.2 Total Bilirubin 0.0 L Direct Bilirubin 0.00 Indirect 0.0 Bilirubin Aspartate Amino 23 Transf (AST/SGOT ) Alanine 10 L Aminotransferase (ALT/SGPT) Alkaline 96 Phosphatase Total Protein 7.1 Albumin 3.5 Globulin 3.60 H Albumin/Globulin 0.97 Ratio Triglycerides 60 Level Cholesterol 59 L Level LDL Cholesterol, 23 Calculated HDL Cholesterol 24 L Cholesterol/HDL 2.4 Ratio Test 05/11/18 12:38 Bedside Glucose 114 MIMI SANDOVAL MD May 11, 2018 16:30
[2018-05-11] MEDS ORDERED: CEFAZOLIN 1 GM INJ ONE (16:36)
[2018-05-11] MEDS ORDERED: ROPIVACAINE 0.5 % 30 ML VIAL ONE (16:36)
[2018-05-11] MEDS ORDERED: ROCURONIUM 50 MG INJ ONE (16:36)
[2018-05-11] MEDS ORDERED: PROPOFOL 20 ML ONE (16:36)
[2018-05-11] MEDS ORDERED: GENTAMICIN 80 MG INJ ONE (16:47)
[2018-05-11] MEDS ORDERED: VANCOMYCIN 1 GM INJ ONE (16:47)
[2018-05-11] MEDS ORDERED: PHENYLephrine (100 MCG/ML) 5ML SYG ONE ×2 (16:50→17:23)
[2018-05-11] MEDS ORDERED: METOCLOPRAMIDE 10 MG INJ ONE (17:25)
[2018-05-11] MEDS ORDERED: ONDANSETRON 4 MG INJ ONE (17:25)
[2018-05-11] MEDS ORDERED: FAMOTIDINE 20 MG INJ ONE (17:25)
[2018-05-11] MEDS ORDERED: DEXAMETHASONE 4 MG/ML 1 ML INJ ONE (17:25)
[2018-05-11] MEDS ORDERED: EPHEDrine SULFATE 50 MG/5 ML SYG IV PRN (17:30)
[2018-05-11] MEDS ORDERED: HYDROmorphONE 1 MG/5 ML IV SYRINGE IV PRN ×2 (17:30)
[2018-05-11] MEDS ORDERED: LABETALOL HCL 20MG INJ IV PRN (17:30)
[2018-05-11] MEDS ORDERED: ONDANSETRON 4 MG INJ IV PRN (17:30)
[2018-05-11] MEDS ORDERED: FENTAnyl 50 MCG/ML VIAL IV PRN ×2 (17:30)
[2018-05-11] MEDS ORDERED: SUGAMMADEX SODIUM 200 MG/2 ML VIAL IV ONE (17:30)
[2018-05-11] MEDS ORDERED: hydrALAzine 20 MG INJ IV PRN (17:30)
--- NOTE | 2018-05-11 17:38 | SIPON ---
Date/Time of Note Date/Time of Note DATE: 05/11/18 TIME: 17:37 Operative Report Preoperative Diagnosis ESRD AND INFECTED PD CATHETER Postoperative Diagnosis SAME Operation/Procedure Performed DIAGNOSTIC LAPAROSCOPY AND LYSIS OF ADHESIONS REMOVAL OF PERITONEAL DIALYSIS CATHETER Surgeon COLE BAUMANN assistance coordinator KANNAN BAUMANN Anesthesia: general Estimated blood loss: 0 - 10 ml's Transfusion Required none Specimen CATHETER TIP AND ABDOMINAL FLUID Grafts/Implants none Complications none KANNAN BAUMANN MD May 11, 2018 17:38
--- NOTE | 2018-05-11 17:46 | PAC ---
Date/Time of Note Date/Time of Note DATE: 05/11/18 TIME: 17:46 Post-Anesthesia Notes Post-Anesthesia Note Last documented vital signs Vital Signs Date Temp Pulse Resp B/P (MAP) Pulse Ox O2 O2 Flow FiO2 Time Delivery Rate 05/11/18 98.9 80 18 115/71 100 17:48 (86) 05/11/18 Nasal 2.0 08:20 Cannula 05/08/18 21 09:24 Activity: WNL Respiratory function: WNL Cardiovascular function: WNL Mental status: Baseline Pain reasonably controlled: Yes Hydration appropriate: Yes Nausea/Vomiting absent: Yes LILIANA VELAZQUEZ MD May 11, 2018 17:46
[2018-05-11] MEDS ORDERED: ALBUTEROL 0.083% (NEB) 2.5 MG/3 ML AMP ONE (18:13)
[2018-05-11] MEDS ORDERED: IPRATROPIUM (NEB) 0.5 MG/2.5 ML AMP HHN PRN (18:30)
[2018-05-11] MEDS ORDERED: ALBUTEROL 0.083% (NEB) 2.5 MG/3 ML AMP HHN PRN (18:30)
--- NOTE | 2018-05-11 19:14 | CONS ---
Date/Time of Note Date/Time of Note DATE: 05/11/18 TIME: 19:08 Assessment/Plan Assessment/Plan Chief Complaint/Hosp Course IMPRESSION: 1. Preoperative evaluation in patient who was to undergo AV fistula creation and removal of PermCath.- Lexiscan- apical scar. No ischema. EF 39%. OK to proceed to OR at moderate CV risk on current medications 2. History of stents 3. Hypertension, under reasonable control. 4. Dyslipidemia. 5. History of percutaneous transluminal coronary angioplasty and stent placement, most recently 10/2017, unknown vessels. 6. Abnormal electrocardiogram, poor R-wave progression across the anterior precordial leads and low voltage. 7. Diastolic dysfunction with the EF approximately 50% by echo 01/10/2018, interpreted by alternative speech language pathologist assistant. 8. Shortness of breath. 9. Congestive heart failure/volume overload by echo would be diastolic, acute on chronic. Recc: -Continue toprollosartan -Continue plavix -Continue amio/statin -To OR today for removal PD catheter/creation of fistula/permacath placement -Follow closely post-operatively for CV complications Consultation Date/Type/Reason Admit Date/Time May 10, 2018 at 17:22 Initial Consult Date 05/08/18 Type of Consultation: cardiology Reason for Consultation preop Requesting Provider: DULCE MARIA TRUONG MD Exam/Review of Systems Vital Signs Vitals Vital Signs Date Temp Pulse Resp B/P (MAP) Pulse Ox O2 O2 Flow FiO2 Time Delivery Rate 05/11/18 106 17 109/80 98 Nasal 2.0 18:32 (90) Cannula 05/11/18 98.8 17:48 05/08/18 21 09:24 Intake and Output 05/10/18 05/10/18 05/11/18 1515:00 23:00 07:00 IntakeIntake Total 240 ml 120 ml BalanceBalance 240 ml 120 ml Exam Review of Systems: CONSTITUTIONAL: No fevers, chills. PULMONARY: No sob CARDIOVASCULAR: No chest pain/palpitations GASTROINTESTINAL: No nausea/vomiting. GENITOURINARY: No hematuria/dysuria. MUSCULOSKELETAL: No myagias/arthalgias. PSYCHIATRIC: The patient denies depression. NEUROLOGIC: No weakness Constitutional: alert Head: normocephalic ENMT: mucosa pink and moist Neck: supple, jvd (9 cm water) Respiratory: clear to auscultation Cardiovascular: regular rate and rhythm Gastrointestinal: soft Musculoskeletal: muscle tone (normal) Extremities: edema (none) Neurological: other (No focal deficits) Medications Medications Current Medications Heparin Sodium (Porcine) (Heparin (1000 Units/ml)) 4,000 unit AFTER DIALYSIS CATHETER Last administered on 05/11/18 12:07; Admin Dose 4,000 UNIT; Start 05/08/18 at 11:30 Sodium Chloride (NS) -To prime the dialy... DIRECTED FOR HD PRN IV SBP less than 90 mm hg ; Start 05/08/18 at 11:30 IV Flush (NS 3 ml) 3 ml PER PROTOCOL IV ; Start 05/08/18 at 13:30 Ondansetron HCl (Zofran Inj) 4 mg Q6H PRN IV NAUSEA AND/OR VOMITING; Start 05/08/18 at 13:30 Acetaminophen (Tylenol Tab) 650 mg Q6H PRN PO PAIN LEVEL 1-3 OR FEVER; Start 05/08/18 at 13:30 Allopurinol (Zyloprim) 100 mg BID PO Last administered on 05/10/18 21:41; Admin Dose 100 MG; Start 05/08/18 at 21:00 Amiodarone HCl (Cordarone) 200 mg DAILY PO Last administered on 05/10/18 09:34; Admin Dose 200 MG; Start 05/09/18 at 09:00 Atorvastatin Calcium (Lipitor) 80 mg QHS PO Last administered on 05/10/18 21:41; Admin Dose 80 MG; Start 05/08/18 at 21:00 Calcium Acetate (Phoslo) 667 mg WITH MEALS PO Last administered on 05/09/18 17:40; Admin Dose 667 MG; Start 05/08/18 at 18:00 Clopidogrel Bisulfate (plaVIX) 75 mg DAILY PO Last administered on 05/10/18 08:33; Admin Dose 75 MG; Start 05/09/18 at 09:00 Insulin Aspart (Novolog Insulin Pen) 15 unit QPM SC Last administered on 05/08/18 21:56; Admin Dose 15 UNIT; Start 05/08/18 at 21:00 Losartan Potassium (Cozaar) 100 mg DAILY PO Last administered on 05/10/18 09:33; Admin Dose 100 MG; Start 05/09/18 at 09:00 Magnesium Oxide (Mag-Ox 400) 400 mg BID PO Last administered on 05/10/18at 22:20; Admin Dose 400 MG; Start 05/08/18 at 21:00 Metoprolol Succinate (Toprol Xl) 200 mg DAILY PO Last administered on 05/10/18at 09:33; Admin Dose 200 MG; Start 05/09/18 at 09:00 Miscellaneous Information 1 ea NOTE XX ; Start 05/08/18 at 14:00 Glucose (Glutose) 15 gm Q15M PRN PO DECREASED GLUCOSE; Start 05/08/18 at 14:00 Glucose (Glutose) 22.5 gm Q15M PRN PO DECREASED GLUCOSE; Start 05/08/18 at 14:00 Dextrose (D50w Syringe) 25 ml Q15M PRN IV DECREASED GLUCOSE; Start 05/08/18 at 14:00 Dextrose (D50w Syringe) 50 ml Q15M PRN IV DECREASED GLUCOSE; Start 05/08/18 at 14:00 Glucagon (Glucagen) 1 mg Q15M PRN IM DECREASED GLUCOSE; Start 05/08/18 at 14:00 Glucose (Glutose) 15 gm Q15M PRN BUCCAL DECREASED GLUCOSE; Start 05/08/18 at 14:00 Insulin Human NPH (Humulin N) 10 unit DAILY@08 SC Last administered on 05/11/18at 08:19; Admin Dose 10 UNIT; Start 05/11/18 at 08:00 Diagnostic Test (Pha) (Accu-Chek) 1 ea 02 XX ; Start 05/11/18 at 02:00 Insulin Aspart (Novolog Insulin Pen) NOVOLOG *MILD* ALGORITHM WITH MEALS BEDTIME SC ; Start 05/10/18 at 18:00 Sodium Chloride 1,000 ml @ 40 mls/hr Q24H IV Last administered on 05/11/18at 00:28; Admin Dose 40 MLS/HR; Start 05/11/18 at 00:00 Albumin Human 100 ml @ 100 mls/hr WITH DIALYSIS PRN IV SBP less than 90 mm Hg Last administered on 05/11/18at 12:04; Admin Dose 100 MLS/HR; Start 05/11/18 at 10:30 Hydromorphone HCl (Dilaudid) 0.2 mg PACU PRN IV MILD PAIN LEVEL 1-3; Start 05/11/18 at 17:30; Stop 05/11/18 at 23:00 Hydromorphone HCl (Dilaudid) 0.4 mg PACU PRN IV MODERATE PAIN LEVEL 4-6; Start 05/11/18 at 17:30; Stop 05/11/18 at 23:00 Fentanyl (Sublimaze) 25 mcg PACU ORDER PRN IV MILD PAIN LEVEL 1-3; Start 05/11/18 at 17:30; Stop 05/11/18 at 23:00 Fentanyl (Sublimaze) 50 mcg PACU ORDER PRN IV MODERATE PAIN LEVEL 4-6; Start 05/11/18 at 17:30; Stop 05/11/18 at 23:00 Ondansetron HCl (Zofran Inj) 4 mg PACU ORDER PRN IV NAUSEA AND/OR VOMITING; Start 05/11/18 at 17:30; Stop 05/11/18 at 23:00 Labetalol HCl (Labetalol) 5 mg PACU ORDER PRN IV ELEVATED BLOOD PRESSURE; Start 05/11/18 at 17:30; Stop 05/11/18 at 23:00 Hydralazine HCl (Apresoline) 5 mg PACU ORDER PRN IV ELEVATED BLOOD PRESSURE; Start 05/11/18 at 17:30; Stop 05/11/18 at 23:00 Ephedrine Sulfate 5 mg PACU ORDER PRN IV BLOOD PRESSURE SUPPORT; Start 05/11/18 at 17:30; Stop 05/11/18 at 23:00 Albuterol (Proventil 0.083% (Neb)) 2.5 mg PACU ORDER PRN HHN WHEEZING; Start 05/11/18 at 18:30; Stop 05/11/18 at 23:33 Ipratropium [place] (Atrovent 0.02% (Neb)) 0.5 mg PACU ORDER PRN HHN WHEEZING; Start 05/11/18 at 18:30; Stop 05/11/18 at 23:33 Results Result Diagram: 05/11/18 0531 05/11/18 0531 Results 24 hrs Laboratory Tests Test 05/10/18 21:21 05/11/18 05:31 05/11/18 08:17 05/11/18 12:38 Bedside Glucose 162 132 114 White Blood 7.5 Count Red Blood Count 3.63 L Hemoglobin 10.2 L Hematocrit 33.9 L Mean Corpuscular 93.4 Volume Mean Corpuscular 28.1 L Hemoglobin Mean Corpuscular 30.1 L Hemoglobin Vivian nt Red Cell 15.8 H Distribution Width Platelet Count 205 Mean Platelet 9.0 Volume Immature 0.400 Granulocytes % Neutrophils % 63.9 Lymphocytes % 11.6 L Monocytes % 12.2 H Eosinophils % 11.0 H Basophils % 0.9 Nucleated Red 0.0 Blood Cells % Immature 0.030 Granulocytes # Neutrophils # 4.8 Lymphocytes # 0.9 Monocytes # 0.9 Eosinophils # 0.8 H Basophils # 0.1 Nucleated Red 0.0 Blood Cells # Sodium Level 137 Potassium Level 4.7 Chloride Level 98 Carbon Dioxide 24 Level Anion Gap 15 H Blood Urea 60 H Nitrogen Creatinine 8.53 H Est Glomerular 6 L Filtrat Rate mL/min Glucose Level 179 Calcium Level 8.3 L Phosphorus Level 5.6 H Magnesium Level 2.2 Total Bilirubin 0.0 L Direct Bilirubin 0.00 Indirect 0.0 Bilirubin Aspartate Amino 23 Transf (AST/SGOT ) Alanine 10 L Aminotransferase (ALT/SGPT) Alkaline 96 Phosphatase Total Protein 7.1 Albumin 3.5 Globulin 3.60 H Albumin/Globulin 0.97 Ratio Triglycerides 60 Level Cholesterol 59 L Level LDL Cholesterol, 23 Calculated HDL Cholesterol 24 L Cholesterol/HDL 2.4 Ratio MIMI LAI May 11, 2018 19:14
--- NOTE | 2018-05-11 19:36 | RADRPT ---
Echocardiogram Report Patient Name: JATINDER MADRIGAL Gender: Male Date: 1955 Study Date: 11-May-2018 Top Case Assembler: Manjinder Landeros [facility] Location: [id number] Ref. Physician: MIMI KIRKLAND Quality: Adequate Procedures: Transthoracic echocardiogram with complete 2D, M-Mode, and doppler examination. Indications: Atrial Fibrillation. 2D/M Mode Doppler Measurement Value Normal Ranges Measurement Value Normal Ranges LVIDd 2D 5.1 3.5 - 5.6 cm AV Peak Alex 1.1 m/sec LVIDs 2D 3.2 2.1 - 4.1 cm AV Peak PG 5.0 mmHg FS 2D 37.3 % LVOT Peak Alex 0.7 m/sec LVPWd 2D 1.1 0.6 - 1.1 cm LVOT Peak PG 2.0 mmHg IVSd 2D 1.5 0.6 - 1.1 cm MV E Peak Alex 1.4 m/sec IVS/LVPW 2D 1.4 MV A Peak Alex 0.4 m/sec AoR Diam 2D 3.5 2.0 - 3.7 cm MV E/A 3.5 LA/Ao 2D 1 0 - 1 MV Decel Time 183 msec EDV 2D 132.0 cm3 MV E/A 3.5 ESV 2D 32.5 cm3 TR Peak Alex 2.3 m/sec LA Dimen 2D 4.0 2.3 - 4.0 cm TR Peak PG 22.0 mmHg RVSP 25.0 mmHg Findings Left Ventricle: Normal left ventricular cavity size. Moderate asymmetric septal hypertrophy. Moderate left ventricular systolic dysfunction. Ejection fraction is visually estimated at 3540 %. Tissue Doppler/Mitral Doppler indices are consistent with impaired relaxation (Stage I diastolic dysfunction). These segments of the LV are hypokinetic apex, inferoseptum mid segment, inferior apex segment, apical septum and inferior mid segment. Right Ventricle: Normal right ventricular size. Normal right ventricular systolic function. Left Atrium: The left atrium is normal in size. Right Atrium: The right atrium is normal in size. Mitral Valve: Mild mitral leaflet calcification. Mild mitral annular calcification. Trace mitral regurgitation. Aortic Valve: No significant aortic stenosis or insufficiency. Aortic cusps appear mildly calcified. Trace aortic valve regurgitation. Tricuspid Valve: Normal appearance of the tricuspid valve. Estimated peak PA systolic pressure 25 mmHg. There is trace tricuspid regurgitation. Pulmonic Valve: Pulmonic valve not well visualized. There is trace pulmonic regurgitation. Pericardium: Normal pericardium with no significant pericardial effusion. Aorta: Ascending aorta is dilated. Ascending Aorta 3.80 cm. IVC: Normal size and normal respiratory collapse consistent with normal right atrial pressure. Conclusions Normal left ventricular cavity size. Moderate asymmetric septal hypertrophy. Moderate left ventricular systolic dysfunction. Ejection fraction is visually estimated at 35-40 %. Tissue Doppler/Mitral Doppler indices are consistent with impaired relaxation (Stage I diastolic dysfunction). Mild mitral leaflet calcification. Mild mitral annular calcification. Trace mitral regurgitation. No significant aortic stenosis or insufficiency. Aortic cusps appear mildly calcified. Trace aortic valve regurgitation. Estimated peak PA systolic pressure 25 mmHg. There is trace tricuspid regurgitation. There is trace pulmonic regurgitation. Electronically Signed By: Mimi Kirkland 11-May-2018 19:35:28 -0800 Patient Name: JATINDER MADRIGAL Study Date: 11-May-2018 [id number]
[2018-05-11] MEDS: ATORVASTATIN 80 MG TAB PO SCH (20:25)
[2018-05-12 02:00] VITALS: BP 116/74; PULSE 86; RESP 19
[2018-05-12] MEDS: ACCU-CHEK XX SCH (02:00)
[2018-05-12 07:40] VITALS: BP 124/81; PULSE 97; RESP 18
--- NOTE | 2018-05-12 07:42 | CONS ---
Date/Time of Note Date/Time of Note DATE: 05/12/18 TIME: 07:41 Assessment/Plan Assessment/Plan Additional Assessment/Plan 1. Acute fluid overload with significant LE edema despite being on 4 times a week HD regimen 2. Concerned about PD catheter infection due to constant pain and cough 3. ESRD on HD , and [place] [facility] 4. H/o HTN 5. H/o DM II 6. H/o HL Plan: s/p HD x 2 days in a row, IR attempted removal of PD catehter but it was uns uccessful due to adhesions and catheter was stucked there s/p Lexiscan which showed EF 39% with moderate size non reversible perfusion defect, pt is clared with moderate risk as per cardiology S/p Laproscopic lysis of adhesions and removal of PD catheter today by Tracy Armstrong, appreciate his help Kayexalate 30 gram PO x 1 dose today, no plan for HD today, Ok to d/c home today pt regular schedule for HD is , , [place] [facility] [place] [facility] [place] Consultation Date/Type/Reason Admit Date/Time May 10, 2018 at 17:22 Initial Consult Date 05/08/18 Type of Consultation: NEPHROLOGY Requesting Provider: DULCE MARIA TRUONG MD Exam/Review of Systems Vital Signs Vitals Vital Signs Date Temp Pulse Resp B/P (MAP) Pulse Ox O2 O2 Flow FiO2 Time Delivery Rate 05/12/18 98.3 86 19 116/74 95 Nasal 2.0 02:00 (88) Cannula 05/08/18 21 09:24 Intake and Output 05/11/18 05/11/18 05/12/18 1515:00 23:00 07:00 IntakeIntake Total 600 ml 100 ml OutputOutput Total 2100 ml 10 ml BalanceBalance -1500 ml 90 ml Exam Constitutional: alert, awake Respiratory: congested cough, crackles/rales, diminished breath sounds Cardiovascular: regular rate and rhythm, nl pulses Gastrointestinal: soft, distended, tender (at PD catheter site on deep palpation ) Musculoskeletal: no clubbing, no cyanosis, no Extremities: normal pulses Neurological: CASE THERAPIST II-XII intact, nl mental status, nl speech, nl strength Medications Medications Current Medications Heparin Sodium (Porcine) (Heparin (1000 Units/ml)) 4,000 unit AFTER DIALYSIS CATHETER Last administered on 05/11/18at 12:07; Admin Dose 4,000 UNIT; Start 05/08/18 at 11:30 Sodium Chloride (NS) -To prime the dialy... DIRECTED FOR HD PRN IV SBP less than 90 mm hg ; Start 05/08/18 at 11:30 IV Flush (NS 3 ml) 3 ml PER PROTOCOL IV ; Start 05/08/18 at 13:30 Ondansetron HCl (Zofran Inj) 4 mg Q6H PRN IV NAUSEA AND/OR VOMITING; Start 05/08/18 at 13:30 Acetaminophen (Tylenol Tab) 650 mg Q6H PRN PO PAIN LEVEL 1-3 OR FEVER; Start 05/08/18 at 13:30 Allopurinol (Zyloprim) 100 mg BID PO Last administered on 05/11/18 20:25; Admin Dose 100 MG; Start 05/08/18 at 21:00 Amiodarone HCl (Cordarone) 200 mg DAILY PO Last administered on 05/10/18 09:34; Admin Dose 200 MG; Start 05/09/18 at 09:00 Atorvastatin Calcium (Lipitor) 80 mg QHS PO Last administered on 05/11/18 20:25; Admin Dose 80 MG; Start 05/08/18 at 21:00 Calcium Acetate (Phoslo) 667 mg WITH MEALS PO Last administered on 05/11/18 20:25; Admin Dose 667 MG; Start 05/08/18 at 18:00 Clopidogrel Bisulfate (plaVIX) 75 mg DAILY PO Last administered on 05/10/18 08:33; Admin Dose 75 MG; Start 05/09/18 at 09:00 Insulin Aspart (Novolog Insulin Pen) 15 unit QPM SC Last administered on 05/11/18 20:33; Admin Dose 15 UNIT; Start 05/08/18 at 21:00 Losartan Potassium (Cozaar) 100 mg DAILY PO Last administered on 05/10/18 09 :33; Admin Dose 100 MG; Start 05/09/18 at 09:00 Magnesium Oxide (Mag-Ox 400) 400 mg BID PO Last administered on 05/11/18 20:25; Admin Dose 400 MG; Start 05/08/18 at 21:00 Metoprolol Succinate (Toprol Xl) 200 mg DAILY PO Last administered on 05/10/18at 09:33; Admin Dose 200 MG; Start 05/09/18 at 09:00 Miscellaneous Information 1 ea NOTE XX ; Start 05/08/18 at 14:00 Glucose (Glutose) 15 gm Q15M PRN PO DECREASED GLUCOSE; Start 05/08/18 at 14:00 Glucose (Glutose) 22.5 gm Q15M PRN PO DECREASED GLUCOSE; Start 05/08/18 at 14:00 Dextrose (D50w Syringe) 25 ml Q15M PRN IV DECREASED GLUCOSE; Start 05/08/18 at 14:00 Dextrose (D50w Syringe) 50 ml Q15M PRN IV DECREASED GLUCOSE; Start 05/08/18 at 14:00 Glucagon (Glucagen) 1 mg Q15M PRN IM DECREASED GLUCOSE; Start 05/08/18 at 14:00 Glucose (Glutose) 15 gm Q15M PRN BUCCAL DECREASED GLUCOSE; Start 05/08/18 at 14:00 Insulin Human NPH (Humulin N) 10 unit DAILY@08 SC Last administered on 05/11/18at 08:19; Admin Dose 10 UNIT; Start 05/11/18 at 08:00 Diagnostic Test (Pha) (Accu-Chek) 1 ea 02 XX ; Start 05/11/18 at 02:00 Insulin Aspart (Novolog Insulin Pen) NOVOLOG *MILD* ALGORITHM WITH MEALS BEDTIME SC ; Start 05/10/18 at 18:00 Sodium Chloride 1,000 ml @ 40 mls/hr Q24H IV Last administered on 05/11/18at 00:28; Admin Dose 40 MLS/HR; Start 05/11/18 at 00:00 Albumin Human 100 ml @ 100 mls/hr WITH DIALYSIS PRN IV SBP less than 90 mm Hg Last administered on 05/11/18at 12:04; Admin Dose 100 MLS/HR; Start 05/11/18 at 10:30 Results Result Diagram: 05/12/18 0459 05/12/18 0459 Results 24 hrs Laboratory Tests Test 05/11/18 08:17 05/11/18 12:38 05/11/18 20:23 05/12/18 02:46 Bedside Glucose 132 114 109 150 Test 05/12/18 04:59 White Blood 6.6 Count Red Blood Count 3.58 L Hemoglobin 10.1 L Hematocrit 33.7 L Mean Corpuscular 94.1 Volume Mean Corpuscular 28.2 L Hemoglobin Mean Corpuscular 30.0 L Hemoglobin Vivian nt Red Cell 15.7 H Distribution Width Platelet Count 192 Mean Platelet 9.2 Volume Immature 0.300 Granulocytes % Neutrophils % 86.2 H Lymphocytes % 7.7 L Monocytes % 5.0 Eosinophils % 0.0 Basophils % 0.8 Nucleated Red 0.0 Blood Cells % Immature 0.020 Granulocytes # Neutrophils # 5.7 Lymphocytes # 0.5 L Monocytes # 0.3 Eosinophils # 0.0 Basophils # 0.1 Nucleated Red 0.0 Blood Cells # Sodium Level 136 Potassium Level 5.5 H Chloride Level 99 Carbon Dioxide 22 Level Anion Gap 15 H Blood Urea 56 H Nitrogen Creatinine 7.33 H Est Glomerular 8 L Filtrat Rate mL/min Glucose Level 184 Calcium Level 8.3 L Phosphorus Level 5.7 H Magnesium Level 2.3 Total Bilirubin 0.0 L Direct Bilirubin 0.00 Indirect 0.0 Bilirubin Aspartate Amino 30 Transf (AST/SGOT ) Alanine 9 L Aminotransferase (ALT/SGPT) Alkaline 107 Phosphatase Total Protein 7.5 Albumin 3.8 Globulin 3.70 H Albumin/Globulin 1.02 Ratio FADI IRWIN MD May 12, 2018 07:41
[2018-05-12] MEDS ORDERED: NA POLYST SULFON 15 GM/60 ML BTL PO ONE (08:30)
[2018-05-12] MEDS: INSULIN ASPART [NOVOLOG] 3 ML PEN SC SCH ×2 (08:31→13:23)
[2018-05-12] MEDS: NPH, HUMAN INSULIN ISOPHANE 3ML VIAL SC SCH (08:32)
[2018-05-12] MEDS: CALCIUM ACETATE 667 MG CAP PO SCH ×2 (08:38→12:00)
[2018-05-12] MEDS: MAGNESIUM OXIDE 400 MG TAB PO SCH (08:40)
[2018-05-12] MEDS: LOSARTAN 50 MG TAB PO SCH (08:40)
[2018-05-12] MEDS: AMIODARONE 200 MG TAB PO SCH (08:40)
[2018-05-12] MEDS: CLOPIDOGREL 75 MG TAB PO SCH (08:41)
[2018-05-12] MEDS: ALLOPURINOL 100 MG TAB PO SCH (08:42)
[2018-05-12] MEDS: METOPROLOL (XL) 100 MG TAB PO SCH (08:42)
--- NOTE | 2018-05-12 11:20 | PDOCDIS ---
Discharge Instructions DIAGNOSIS Discharge Diagnosis Unnecessary peritoneal dialysis catheter Pulmonary edema with dyspnea. CONDITION [id number] Patient Condition: [id number] Good HOME CARE INSTRUCTIONS: [id number] Diet Instructions: [id number] Reduced Sodium [id number] Special Diet: [id number] RENAL ACTIVITY: [id number] Activity Restrictions: [id number] No Restrictions FOLLOW UP/APPOINTMENTS Follow-up Plan See your primary care doctor as scheduled Go to dialysis as scheduled. MIMI SANDOVAL MD May 12, 2018 11:20
--- NOTE | 2018-05-12 14:23 | DS ---
Date/Time of Note Date/Time of Note DATE: 05/12/18 TIME: 14:20 Discharge Summary Admission/Discharge Info Admit Date/Time May 08, 2018 at 17:22 Discharge Date/Time May 12, 2018 Discharge Diagnosis Unnecessary peritoneal dialysis catheter Pulmonary edema with dyspnea. Patient Condition: Good Consults Nephrology Interventional Radiology General surgery Procedures Surgical removal of RLQ peritoneal dialysis catheter Hx of Present Illness Mr Mercer is a 63 yo man with ESRD on HD and IDDM who presents with shortness of breath. He has ESRD and previously was on peritoneal dialysis until January; when he was admitted here for fluid overload and switched to hemodialysis via R chest perm acath. Since then he's been getting T-- dialysis; but last week he required an extra session of dialysis on . Last dialysis was Sat. This morning he reports having significant dyspnea at rest, wheezing, and dry cough. Feels that he cannot catch his breath. He was hospitalized 1 month ago with new A fib with RVR and was started on amiodarone and Eliquis at that time. His peritoneal catheter has been clamped since January. He has had mild abdominal distension but denies pain. According to Dr Crystal, his peritoneal fluid was abnormal in the HD unit. In the ED he was afebrile, P 60s, BP 141/122, satting 100% on room air. CXR with some pulmonary vascular congestion. Hospital Course In the hospital, he got scheduled dialysis. After the first session his dyspnea was significantly improved. He never required supplemental oxygen. A plan was made to remove his peritoneal catheter. IR attempted to remove it unsuccessfully. Dr. Pedroza from vascular surgery was then consulted. He reque sted cardiac clearance, so the patient got a Lexiscan which showed no evidence of ischemia. He then was taken to OR with successful removal of the catheter. Home Meds Active Scripts Losartan Potassium* (Losartan Potassium*) 100 Mg Tablet, 100 MG PO DAILY, #30 TAB Prov:BRADLEY OVALLE 01/14/18 Reported Medications Metoprolol Succinate* (Toprol XL*) 200 Mg Tab.sr.24h, 200 MG PO DAILY, #30 TAB 05/08/18 Magnesium Oxide* (Magnesium Oxide*) 400 Mg Tablet, 400 MG PO BID, TAB 05/08/18 Insulin Regular, Human (Humulin R) 100 Unit/1 Ml Vial, 15 UNIT IJ QPM, VIAL 11/26/18 Insulin NPH Human Isophane (Humulin N) 100 Unit/1 Ml Vial, 20 UNIT SQ QAM, VIAL 05/08/18 Clopidogrel Bisulfate (Clopidogrel) 75 Mg Tablet, 75 MG PO DAILY, #30 TAB 05/08/18 Atorvastatin* (Atorvastatin*) 80 Mg Tablet, 80 MG PO QHS, #30 TAB 05/08/18 Amiodarone Hcl* (Amiodarone Hcl*) 200 Mg Tablet, 200 MG PO DAILY, #30 TAB 05/08/18 Allopurinol* (Allopurinol*) 100 Mg Tablet, 100 MG PO BID, TAB 01/09/18 Calcium Acetate* (Calcium Acetate*) 667 Mg Capsule, 667 MG PO WITH MEALS, #90 CAP 01/09/18 Discontinued Scripts Insulin Aspart* (Novolog Insulin Pen*) 100 Unit/Ml Soln, 8 UNIT SC WITH MEALS for 30 Days Prov:BRADLEY OVALLE 01/14/18 [Insulin Glargine] 100 UNITS/ML SOLN No Conflict Check, 35 UNITS SC QHS for 30 Days Prov:BRADLEY OVALLE 01/14/18 Clopidogrel Bisulfate* (Clopidogrel Bisulfate*) 75 Mg Tablet, 75 MG PO DAILY, #30 TAB Prov:BRADLEY OVALLE 01/14/18 Aspirin* (Aspirin* EC) 81 Mg Tablet.dr, 81 MG PO DAILY, #30 TAB Prov:BRADLEY OVALLE 01/14/18 Atorvastatin* (Atorvastatin*) 80 Mg Tablet, 80 MG PO QHS, #30 TAB Prov:BRADLEY OVALLE 01/14/18 Metoprolol Succinate* (Toprol XL*) 200 Mg Tab.sr.24h, 200 MG PO DAILY, #30 TAB Prov:BRADLEY OVALLE 01/14/18 Furosemide* (Furosemide*) 40 Mg Tablet, 40 MG PO BID, #60 TAB Prov:BRADLEY OVALLE 01/14/18 Follow-up Plan See your primary care doctor as scheduled Go to dialysis as scheduled. Primary Care Provider Estuardo Klein Time spent on discharge: > 30 minutes Pending Labs Laboratory Tests Test 05/11/18 20:23 05/12/18 02:46 05/12/18 04:59 05/12/18 08:27 Bedside 109 150 186 Glucose mg/dL (70-220) mg/dL (70-220) mg/dL (70-220) White Blood 6.6 Count 10^3/ul (4.8-1 0.8) Red Blood 3.58 Count 10^6/ul (4.70- 6.10) Hemoglobin 10.1 g/dl (14.0-18. 0) Hematocrit 33.7 % (42.0-52.0) Mean 94.1 Corpuscular fl (82.0-101.0 Volume ) Mean 28.2 Corpuscular pg (29.0-33.0) Hemoglobin Mean 30.0 Corpuscular g/dl (32.0-37. Hemoglobin Conc 0) ent Red Cell 15.7 Distribution % (11.5-14.5) Width Platelet Count 192 10^3/UL (140-4 15) Mean Platelet 9.2 Volume fl (7.4-10.4) Immature 0.300 Granulocytes % % (0.001-0.429 ) Neutrophils % 86.2 % (39.0-77.0) Lymphocytes % 7.7 % (15.0-51.0) Monocytes % 5.0 % (0.0-11.0) Eosinophils % 0.0 % (0.0-7.0) Basophils % 0.8 % (0.0-2.0) Nucleated Red 0.0 Blood Cells % /100WBC (0.0-0 .0) Immature 0.020 Granulocytes # 10^3/ul (0.0-0 .031) Neutrophils # 5.7 10^3/ul (1.6-7 .5) Lymphocytes # 0.5 10^3/ul (0.8-2 .9) Monocytes # 0.3 10^3/ul (0.3-0 .9) Eosinophils # 0.0 10^3/ul (0.0-0 .5) Basophils # 0.1 10^3/ul (0.0-0 .1) Nucleated Red 0.0 Blood Cells # 10^3/ul (0.0-0 .0) Sodium Level 136 mmol/L (135-14 4) Potassium 5.5 Level mmol/L (3.5-5. 1) Chloride Level 99 mmol/L (97-110 ) Carbon Dioxide 22 Level mmol/L (21-31) Anion Gap 15 (5-13) Blood Urea 56 Nitrogen mg/dl (7-20) Creatinine 7.33 mg/dl (0.61-1. 24) Est Glomerular 8 mL/min (>60) Filtrat Rate mL/min Glucose Level 184 mg/dl (70-220) Calcium Level 8.3 mg/dl (8.4-10. 2) Phosphorus 5.7 Level mg/dl (2.5-4.9 ) Magnesium 2.3 Level mg/dl (1.7-2.5 ) Total 0.0 Bilirubin mg/dl (0.2-1.3 ) Direct 0.00 Bilirubin mg/dl (0.00-0. 20) Indirect 0.0 Bilirubin mg/dl (0-1.1) Aspartate Amino 30 Transf (AST/SGO IU/L (15-46) T) Alanine 9 IU/L (13-69) Aminotransferas e (ALT/SGPT) Alkaline 107 Phosphatase IU/L (42-121) Total Protein 7.5 g/dl (6.1-8.1) Albumin 3.8 g/dl (3.3-4.9) Globulin 3.70 g/dl (1.3-3.2) Albumin/Globuli 1.02 n Ratio Test 05/12/18 13:20 Bedside 186 Glucose mg/dL (70-220) Microbiology Date/Time Source Procedure Growth Status 05/11/18 18:00 Peritoneal Gram Stain - Final Resulted 05/11/18 18:00 Peritoneal Wound Culture - Preliminary Resulted 05/11/18 18:00 Peritoneal Fluid Gram Stain - Final Resulted 05/11/18 18:00 Peritoneal Fluid Body Fluid Culture - Preliminary Resulted MIMI SANDOVAL MD May 12, 2018 14:22
--- NOTE | 2018-05-12 14:33 | CONS ---
Date/Time of Note Date/Time of Note DATE: 05/12/18 TIME: 14:29 Assessment/Plan Assessment/Plan Chief Complaint/Hosp Course IMPRESSION: 1. Preoperative evaluation in patient who was to undergo AV fistula creation and removal of PermCath.- Lexiscan- apical scar. No ischema. EF 39%. OK to proceed to OR at moderate CV risk on current medications. POD#1 s/p removal of PD catheter 2. History of stents 3. Hypertension, under reasonable control. 4. Dyslipidemia. 5. History of percutaneous transluminal coronary angioplasty and stent placement, most recently 10/2017, unknown vessels. 6. Abnormal electrocardiogram, poor R-wave progression across the anterior precordial leads and low voltage. 7. Diastolic dysfunction with the EF approximately 50% by echo 01/10/2018, interpreted by alternative printing equipment mechanic apprentice. 8. Shortness of breath. 9. Congestive heart failure/volume overload by echo would be diastolic, acute on chronic. Recc: -Continue toprol/losartan -Continue plavix -Continue amio/statin -ok for d/c from cardiac standpoint Consultation Date/Type/Reason Admit Date/Time May 10, 2018 at 17:22 Initial Consult Date 05/08/18 Type of Consultation: cardiology Reason for Consultation Preop/cardiomyopathy Requesting Provider: DULCE MARIA TRUONG MD Exam/Review of Systems Vital Signs Vitals Vital Signs Date Temp Pulse Resp B/P (MAP) Pulse Ox O2 O2 Flow FiO2 Time Delivery Rate 05/12/18 98.5 97 18 124/81 94 07:40 (95) 05/12/18 Nasal 2.0 02:00 Cannula 05/08/18 21 09:24 Intake and Output 05/11/18 05/11/18 05/12/18 1515:00 23:00 07:00 IntakeIntake Total 600 ml 100 ml OutputOutput Total 2100 ml 10 ml BalanceBalance -1500 ml 90 ml Exam Review of Systems: CONSTITUTIONAL: No fevers, chills. PULMONARY: No sob CARDIOVASCULAR: No chest pain/palpitations GASTROINTESTINAL: No nausea/vomiting. GENITOURINARY: No hematuria/dysuria. MUSCULOSKELETAL: No myagias/arthalgias. PSYCHIATRIC: The patient denies depression. NEUROLOGIC: No weakness Constitutional: alert Psych: no complaints Head: normocephalic ENMT: mucosa pink and moist Neck: supple, jvd (9 cm water) Respiratory: clear to auscultation Cardiovascular: regular rate and rhythm Gastrointestinal: soft, non-tender Extremities: edema (none) Neurological: other (No focal deficits) Medications Medications Current Medications Heparin Sodium (Porcine) (Heparin (1000 Units/ml)) 4,000 unit AFTER DIALYSIS CATHETER Last administered on 05/11/18 12:07; Admin Dose 4,000 UNIT; Start 05/08/18 at 11:30 Sodium Chloride (NS) -To prime the dialy... DIRECTED FOR HD PRN IV SBP less than 90 mm hg ; Start 05/08/18 at 11:30 IV Flush (NS 3 ml) 3 ml PER PROTOCOL IV ; Start 05/08/18 at 13:30 Ondansetron HCl (Zofran Inj) 4 mg Q6H PRN IV NAUSEA AND/OR VOMITING; Start 05/08/18 at 13:30 Acetaminophen (Tylenol Tab) 650 mg Q6H PRN PO PAIN LEVEL 1-3 OR FEVER Last administered on 05/12/18 12:01; Admin Dose 650 MG; Start 05/08/18 at 13:30 Allopurinol (Zyloprim) 100 mg BID PO Last administered on 05/12/18 08:42; Admin Dose 100 MG; Start 05/08/18 at 21:00 Amiodarone HCl (Cordarone) 200 mg DAILY PO Last administered on 05/12/18 08:40; Admin Dose 200 MG; Start 05/09/18 at 09:00 Atorvastatin Calcium (Lipitor) 80 mg QHS PO Last administered on 05/11/18 20:25; Admin Dose 80 MG; Start 05/08/18 at 21:00 Calcium Acetate (Phoslo) 667 mg WITH MEALS PO Last administered on 05/12/18 12:00; Admin Dose 667 MG; Start 05/08/18 at 18:00 Clopidogrel Bisulfate (plaVIX) 75 mg DAILY PO Last administered on 05/12/18 08:41; Admin Dose 75 MG; Start 05/09/18 at 09:00 Insulin Aspart (Novolog Insulin Pen) 15 unit QPM SC Last administered on 05/11/18 20:33; Admin Dose 15 UNIT; Start 05/08/18 at 21:00 Losartan Potassium (Cozaar) 100 mg DAILY PO Last administered on 11/30/18at 08:40; Admin Dose 100 MG; Start 05/09/18 at 09:00 Magnesium Oxide (Mag-Ox 400) 400 mg BID PO Last administered on 05/12/18at 08:40; Admin Dose 400 MG; Start 05/08/18 at 21:00 Metoprolol Succinate (Toprol Xl) 200 mg DAILY PO Last administered on 05/12/18at 08:42; Admin Dose 200 MG; Start 05/09/18 at 09:00 Miscellaneous Information 1 ea NOTE XX ; Start 05/08/18 at 14:00 Glucose (Glutose) 15 gm Q15M PRN PO DECREASED GLUCOSE; Start 05/08/18 at 14:00 Glucose (Glutose) 22.5 gm Q15M PRN PO DECREASED GLUCOSE; Start 05/08/18 at 14:00 Dextrose (D50w Syringe) 25 ml Q15M PRN IV DECREASED GLUCOSE; Start 05/08/18 at 14:00 Dextrose (D50w Syringe) 50 ml Q15M PRN IV DECREASED GLUCOSE; Start 05/08/18 at 14:00 Glucagon (Glucagen) 1 mg Q15M PRN IM DECREASED GLUCOSE; Start 05/08/18 at 14:00 Glucose (Glutose) 15 gm Q15M PRN BUCCAL DECREASED GLUCOSE; Start 05/08/18 at 14:00 Insulin Human NPH (Humulin N) 10 unit DAILY@08 SC Last administered on 05/12/18at 08:32; Admin Dose 10 UNIT; Start 05/11/18 at 08:00 Diagnostic Test (Pha) (Accu-Chek) 1 ea 02 XX ; Start 05/11/18 at 02:00 Insulin Aspart (Novolog Insulin Pen) NOVOLOG *MILD* ALGORITHM WITH MEALS BEDTIME SC Last administered on 05/12/18at 13:23; Admin Dose 2 UNIT; Start 05/10/18 at 18:00 Sodium Chloride 1,000 ml @ 40 mls/hr Q24H IV Last administered on 05/11/18at 00:28; Admin Dose 40 MLS/HR; Start 05/11/18 at 00:00 Albumin Human 100 ml @ 100 mls/hr WITH DIALYSIS PRN IV SBP less than 90 mm Hg Last administered on 05/11/18at 12:04; Admin Dose 100 MLS/HR; Start 05/11/18 at 10:30 Results Result Diagram: 05/12/18 0459 05/12/18 0459 Results 24 hrs Laboratory Tests Test 05/11/18 20:23 05/12/18 02:46 05/12/18 04:59 05/12/18 08:27 Bedside Glucose 109 150 186 White Blood 6.6 Count Red Blood Count 3.58 L Hemoglobin 10.1 L Hematocrit 33.7 L Mean Corpuscular 94.1 Volume Mean Corpuscular 28.2 L Hemoglobin Mean Corpuscular 30.0 L Hemoglobin Vivian nt Red Cell 15.7 H Distribution Width Platelet Count 192 Mean Platelet 9.2 Volume Immature 0.300 Granulocytes % Neutrophils % 86.2 H Lymphocytes % 7.7 L Monocytes % 5.0 Eosinophils % 0.0 Basophils % 0.8 Nucleated Red 0.0 Blood Cells % Immature 0.020 Granulocytes # Neutrophils # 5.7 Lymphocytes # 0.5 L Monocytes # 0.3 Eosinophils # 0.0 Basophils # 0.1 Nucleated Red 0.0 Blood Cells # Sodium Level 136 Potassium Level 5.5 H Chloride Level 99 Carbon Dioxide 22 Level Anion Gap 15 H Blood Urea 56 H Nitrogen Creatinine 7.33 H Est Glomerular 8 L Filtrat Rate mL/min Glucose Level 184 Calcium Level 8.3 L Phosphorus Level 5.7 H Magnesium Level 2.3 Total Bilirubin 0.0 L Direct Bilirubin 0.00 Indirect 0.0 Bilirubin Aspartate Amino 30 Transf (AST/SGOT ) Alanine 9 L Aminotransferase (ALT/SGPT) Alkaline 107 Phosphatase Total Protein 7.5 Albumin 3.8 Globulin 3.70 H Albumin/Globulin 1.02 Ratio Test 05/12/18 13:20 Bedside Glucose 186 MIMI LAI May 12, 2018 14:33
[2018-05-12 15:36] VITALS: BP 115/79; PULSE 96; RESP 18
--- NOTE | 2018-05-13 13:30 | RADRPT ---
Vent Rate: 81 bpm RR Interval: 0 msec ID Interval: 0 msec QRS Duration: 82 msec QT Interval: 426 msec QTC Interval: 494 msec P-R-T Parthenon: 0 - 0 - 102 degrees Atrial fibrillation Inferior infarct , age undetermined Anterolateral infarct , age undetermined Abnormal ECG Electronically Signed By: Trent Astorga [id number]
--- NOTE | 2018-06-23 20:30 | OPR ---
Date/Time of Note Date/Time of Note DATE: 06/23/18 TIME: 20:22 Operative Report Procedure Date: May 11, 2018 Preoperative Diagnosis ESRD with infected Peritoneal Dialysis Catheter Postoperative Diagnosis same Operation/Procedure Performed DIAGNOSTIC LAPAROSCOPY AND LYSIS OF ADHESIONS REMOVAL OF PERITONEAL DIALYSIS CATHETER Surgeon see signature line Receiver Dispatcher Dr. Misha Baumann MD FACS Anesthesia Type: general Estimated Blood Loss: minimal Transfusion none Specimen PD catheter Grafts/Implants none Complications none Pt Condition Post Procedure: stable Disposition: PACU Procedure Description Pt was brought to the operating room and placed supine. A time out was performed. SCD's were in place. Perioperative antibiotics were given. Pt was next successfully intubated and sedated. The abdomen was prepped and draped as per routine. Next, after infiltration of marcaine a left subcostal incision was made and Optiview access was obtained into the abdomen. Insufflation ensued and the abdomen was evaluated. There was a lot of adhesions around the PD catheter entry point. There was some free fluid. Two remaining trocars were placed. We next performed a lysis of adhesions and the catheter was completely freed from its attachments. At this point, peritoneal fluid was sent for culture. We next made an incision over the inner cuff of the catheter. the incision was taken all the way to the fascia. Both the inner and outer cuffs were now dissected off and the catheter was safely removed. the area was irrigated and washed out. the fascial opening was next repaired and closed with 0 vicryl suture. the incision was cauterized and closed in layers with vicryl and monocryl. The catheter skin entry point was also excised and packed. Dressings were applied. At the end of the case, pt tolerate the procedure well and was extubated. The sponge, needle and instrument counts were correct at the end of the case per nursing staff. COLE BAUMANN Jun 23, 2018 20:30
== END 2018-05-12 17:10 | disposition home or self-care (01) | DRG 981 ==
LOC: E/R 09:01 → 2NE 11:10 → OBSVTOIN 05-10 17:22 → 2NE 05-11 18:06
PROVIDERS: ADMIT Internal Medicine; ATTEND Internal Medicine
PROC: 5A1D70Z Performance of Urinary Filtration, Intermittent, Less than 6 Hours Per Day (ICD-10-PCS; 2018-05-08)
PROC: 0WPG43Z Removal of Infusion Device from Peritoneal Cavity, Percutaneous Endoscopic Approach (ICD-10-PCS; principal; 2018-05-11 15:30)
DX: T85.71XA Infection and inflammatory reaction due to peritoneal dialysis catheter, initial encounter (principal); N18.6 End stage renal disease; I50.33 Acute on chronic diastolic (congestive) heart failure; K65.2 Spontaneous bacterial peritonitis; I13.2 Hypertensive heart and chronic kidney disease with heart failure and with stage 5 chronic kidney disease, or end stage renal disease; E11.22 Type 2 diabetes mellitus with diabetic chronic kidney disease; Z99.2 Dependence on renal dialysis; B95.1 Streptococcus, group B, as the cause of diseases classified elsewhere; I48.0 Paroxysmal atrial fibrillation; Z95.5 Presence of coronary angioplasty implant and graft; Z87.891 Personal history of nicotine dependence
CPT/HCPCS: 36415; 36590; 71045; 78452; 80048; 80053; 80061; 82962; 83036; 83735; 84100; 84484; 84560; 85025; 87070; 87081; 87102; 87116; 87340; 90935; 93005; 93017; 93306; 93923; 93970; 94664; A9500; A9505; G0378; J0690; J1100; J1580; J1644; J1815; J2270; J2370; J2405; J2765; J2785; J2795; J3010; J3370; J7030